=== PATIENT | female | born 1970 | race Caucasian/White ===

== ENCOUNTER 2017-10-13 20:00 | Emergency (ER) | payer OTHER ==
[2017-10-13 20:58] LABS: ABS Basophils 0 10^3/ul (0-0.2); ABS Eosinophils 0 10^3/ul (0-0.6); ABS Lymphocytes 1.5 10^3/ul (1.0-4.8); ABS Monocytes 0.6 10^3/ul (0-0.8); ABS Neutrophils 5.1 10^3/ul (1.5-7.7); ABS Nucleated RBC 0 10^3/ul; Eosinophil % 0.7 % (0-6); Hematocrit 40 % (35-47); Hemoglobin 13.5 g/dl (12.0-16.0); Lymphocyte % 20.2 % (25-47); Mean Corpuscular HGB Conc 34 g/dl (31-36); Mean Corpuscular Hemoglobin 31 pg (27-31); Mean Corpuscular Volume 93 fL (80-97); Mean Platelet Volume 9.8 um3 (7.4-10.4); Nucleated Red Blood Cells % 0.1; Platelet Count 218 10^3/ul (150-450); Red Blood Count 4.32 10^6/ul (4.00-5.40); Red Cell Distribution Width 13 % (10.5-15); White Blood Count 7.3 10^3/ul (3.5-10.8)
[2017-10-13 21:01] LABS: Urine Appearance Cloudy; Urine Blood Negative (Negative); Urine Color Amber; Urine Ketones 1+ (Negative); Urine Protein 1+(30 mg/dL) (Negative); Urine Red Blood Cell 1+(3-5/hpf) (Absent); Urine Urobilinogen Negative (Negative); Urine White Blood Cell Trace(0-5/hpf) (Absent)
[2017-10-13 21:17] LABS: EGFR Non-African American 43.3 (>60)
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
[2017-10-14] MEDS ORDERED: Nicotine Inhaler* 10 MG AMP INH ONE ×2 (01:01→04:37)
[2017-10-14] MEDS ORDERED: Mouth Piece, Nicotine* 1 EACH CARTRIDGE ONE (01:02)
[2017-10-14] MEDS ORDERED: Nicotine Inhaler* 10 MG AMP ONE (01:02)
[2017-10-14] MEDS: Mouth Piece, Nicotine* 1 EACH CARTRIDGE INH PRN ×2 (01:03→10:38)
[2017-10-14] MEDS ORDERED: ALPRAZolam TAB* 0.5 MG PO ONE (04:27)
[2017-10-14] MEDS ORDERED: traMADol TAB* 50 MG PO ONE (04:27)
[2017-10-14] MEDS ORDERED: Mouth Piece, Nicotine* 1 EACH CARTRIDGE INH PRN (04:37)
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
[2017-10-14] MEDS ORDERED: Ibuprofen TAB* 600 MG PO ONE (07:44)
[2017-10-14 11:00] VITALS: BP 127/76
== END 2017-10-14 09:45 | disposition home or self-care (01) ==
LOC: ED 20:00
DX: F19.10 Other psychoactive substance abuse, uncomplicated (principal); F32.9 Major depressive disorder, single episode, unspecified; I10 Essential (primary) hypertension; Z79.899 Other long term (current) drug therapy; Z88.6 Allergy status to analgesic agent; Z88.8 Allergy status to other drugs, medicaments and biological substances; K21.9 Gastro-esophageal reflux disease without esophagitis; F17.210 Nicotine dependence, cigarettes, uncomplicated
CPT/HCPCS: 36415; 80053; 80307; 80320; 80329; 81003; 81015; 84443; 85025; 87077; 87086; 99285; A9270-GY; G0480

== ENCOUNTER → 2018-07-22 14:47 | Emergency (ER) | payer OTHER ==
[~2018-07-22 14:47] MED LIST: Iodixanol* (CONTRAST) 320 MG/ML 100 ML SDV IV ONE; Morphine 4 MG/ML VIAL (1 ml) 4 MG/ML VIAL IV ONE; Ondansetron INJ* 2 MG/ML VIAL IV ONE
[2018-07-22 16:22] LABS: ABS Basophils 0.1 10^3/ul (0-0.2); ABS Eosinophils 0.2 10^3/ul (0-0.6); ABS Lymphocytes 1.6 10^3/ul (1.0-4.8); ABS Monocytes 0.4 10^3/ul (0-0.8); Eosinophil % 2.3 %; Hematocrit 42 % (35-47); Hemoglobin 14.2 g/dL (12.0-16.0); Lymphocyte % 22.1 %; Mean Corpuscular HGB Conc 34 g/dL (31-36); Mean Corpuscular Hemoglobin 31 pg (27-31); Mean Corpuscular Volume 92 fL (80-97); Nucleated Red Blood Cells % 0.1; Platelet Count 264 10^3/uL (150-450); Red Blood Count 4.57 10^6 /uL (3.70-4.87); Red Cell Distribution Width 12 % (10.5-15); White Blood Count 7.2 10^3/uL (3.5-10.8)
[2018-07-22 16:42] LABS: Albumin 4.7 g/dL (3.2-5.2); Albumin/Globulin Ratio 1.7 (1-3); BUN/Creatinine Ratio 14.7 (8-20); C Reactive Protein 2.8 mg/L (<8.01); Calcium 9.7 mg/dL (8.6-10.3); EGFR African American 60.6 (>60); EGFR Non-African American 50.1 (>60); Globulin 2.7 g/dL (2-4); Total Bilirubin 0.5 mg/dL (0.2-1.0); Total Protein 7.4 g/dL (6.4-8.9)
[2018-07-22 16:46] LABS: HCG Pregnancy 0.65 mIU/mL
[2018-07-22 17:57] LABS: Urine Appearance Clear; Urine Bilirubin Negative (Negative); Urine Blood Negative (Negative); Urine Color Straw; Urine Glucose Negative (Negative); Urine Ketones Negative (Negative); Urine Nitrite Negative (Negative); Urine Protein Negative (Negative); Urine Specific Gravity 1.004 (1.010-1.030); Urine Urobilinogen Negative (Negative)
--- NOTE | 2018-07-22 18:06 | ED ---
GI/ HPI - HPI Summary HPI Summary: 37-year-old female presents with right lower quadrant pain for the past couple days. She states the pain is becoming more intense. She was seen by her primary care and sent in for a CAT scan. She denies any nausea vomiting. No change in appetite. pain is worse when she moves. She does have a history of ectopic so they removed her fallopian tubes. She denies any dysuria. No flank pain. No fevers. has had a normal bowel movement yesterday. Denies any diarrhea or constipation. She states the pain is sharp in nature. Nothing makes the pain better or worse. Never had this pain before. - History of Current Complaint Chief Complaint: EDAbdPain Time Seen by Provider: 07/22/18 17:44 Stated Complaint: LOWER RIGHT ABD PAIN PER PT Pain Intensity: 8 - Allergy/Home Medications Allergies/Adverse Reactions: Allergies Allergy/AdvReac Type Severity Reaction Status Date / Time acetaminophen Allergy Unknown Verified 07/22/18 15:00 Reaction Details adhesive tape Allergy causes Verified 07/22/18 15:00 skin mitchell divalproex sodium Allergy Unknown Verified 07/22/18 15:00 [From Depakote] Reaction Details doxycycline Allergy Nausea And Verified 07/22/18 15:00 Vomiting ertapenem Allergy Rash Verified 07/22/18 15:00 gabapentin [From Neurontin] Allergy Swelling Verified 07/22/18 15:00 lamotrigine Allergy seizure Verified 07/22/18 15:00 meropenem Allergy Rash Verified 07/22/18 15:00 metaxalone [From Skelaxin] Allergy Vomiting Verified 07/22/18 15:00 NSAIDS (Non-Steroidal Allergy Unknown Verified 07/22/18 15:00 Anti-Inflamma Reaction Details pregabalin [From Lyrica] Allergy Nausea And Verified 07/22/18 15:00 Vomiting terbinafine Allergy Rash Verified 07/22/18 15:00 tiagabine [From Gabitril] Allergy seizure Verified 07/22/18 15:00 topiramate [From Topamax] Allergy Unknown Verified 07/22/18 15:00 Reaction Details varenicline Allergy Unknown Verified 07/22/18 15:00 Reaction Details oral contraceptives Allergy History of Uncoded 07/22/18 15:00 DVT PMH/Surg Hx/FS Hx/Imm Hx Endocrine/Hematology History: Reports: Hx Anticoagulant Therapy, Hx Blood Transfusions Denies: Hx Diabetes, Hx Systemic Lupus Erythematosus Cardiovascular History: Reports: Hx Coronary Artery Disease, Hx Deep Vein Thrombosis - right leg 10 years ago, Hx Hypertension - CONTROL WITH MEDS, Hx Syncope, Other Cardiovascular Problems/Disorders - 2013 HEART CATHERIZATION, HX OF DVT 2005 Denies: Hx Congestive Heart Failure, Hx Pacemaker/ICD Respiratory History: Reports: Hx Asthma - USE INHALER, Hx Chronic Bronchitis, Hx Pneumonia - current, Other Respiratory Problems/Disorders - ATLEAST ONCE A YEAR GI History: Reports: Hx Gastroesophageal Reflux Disease - CONTROL WITH MEDS, Other GI Disorders - DIVERTICULITIS History: Reports: Hx Acute Renal Failure, Hx Dialysis - ACUTE RENAL FAILURE WHILE IN [facility] 03/2013, Hx Renal Disease - DIALYSIS WHILE IN HOSPITAL, Other Problems/Disorders - 03/16-03/31/2013 HX OF DIALYSIS FOR KIDNEY FAILURE DUE TO SEPSIS Musculoskeletal History: Reports: Hx Arthritis - GENERALIZED, Hx Back Problems, Other Musculoskeletal History - ARTHRITIS Denies: Hx Rheumatoid Arthritis Sensory History: Reports: Hx Contacts or Glasses - GLASSES Denies: Hx Hearing Aid Opthamlomology History: Reports: Hx Contacts or Glasses - GLASSES Neurological History: Reports: Hx Migraine - STRESS INDUCED, Hx Seizures - 2013, Hx Transient Ischemic Attacks (TIA), Other Neuro Impairments/Disorders - HX OF COMA 03/16/13- R/T INTERNAL INFECTION, SEPSIS Psychiatric History: Reports: Hx Anxiety, Hx Depression, Hx Bipolar Disorder Denies: Hx Eating Disorder, Hx Panic Disorder, Hx of Violent Episodes Against Others - Surgical History Surgery Procedure, Year, and Place: 2002 & 2004 NECK FUSION x 2, [facility] [place]. 2002 ORIF LEFT ANKLE SCREWS,. [id number] ECTOPIC PREGNANCIES X 4;. 1999 LEFT BREAST LUMPECTOMY, [facility] [place]. 2009 LEFT WRIST GANGLION CYST REMOVED, [facility] [place]. UTERINE ABLATION , [facility] [place]. 03/2013 HEART CATHERIZATION, [facility] [place]. bilateral salpingectomy Hx Anesthesia Reactions: No Infectious Disease History: No Infectious Disease History: Reports: Hx Hepatitis - HEP C ANTIBIODIES Denies: History Other Infectious Disease, Traveled Outside the [place] in Last 30 Days - Family History Known Family History: Positive: Unknown Negative: Cardiac Disease - Social History Alcohol Use: None Substance Use Type: Reports: None Substance Use Comment - Amount & Last Used: hx of drug and alcohol abuse- reports none in 8 years Smoking Status (MU): Light Every Day Tobacco Smoker Type: Cigarettes Amount Used/How Often: 1 pack per week Have You Smoked in the Last Year: Yes Review of Systems Negative: Fever Negative: Chest Pain Negative: Shortness Of Breath Positive: Abdominal Pain. Negative: Vomiting, Diarrhea, Nausea Negative: dysuria All Other Systems Reviewed And Are Negative: Yes Physical Exam Triage Information Reviewed: Yes Vital Signs On Initial Exam: Initial Vitals Temp Pulse Resp BP Pulse Ox 98.6 F 86 14 115/82 98 07/22/18 14:55 07/22/18 14:55 07/22/18 14:55 07/22/18 14:55 07/22/18 14:55 Vital Signs Reviewed: Yes Appearance: Positive: Well-Appearing Skin: Positive: Warm, Dry Head/Face: Positive: Normal Head/Face Inspection Eyes: Positive: Normal, Conjunctiva Clear ENT: Positive: Pharynx normal Respiratory/Lung Sounds: Positive: Clear to Auscultation, Breath Sounds Present Cardiovascular: Positive: Normal, RRR Abdomen Description: Positive: Soft, Other: - tenderness in RLQ, pos obturator Bowel Sounds: Positive: Present Musculoskeletal: Positive: Normal Neurological: Positive: Normal Psychiatric: Positive: Normal Diagnostics - Vital Signs Vital Signs Temp Pulse Resp BP Pulse Ox 07/22/18 14:55 98.6 F 86 14 115/82 98 - Laboratory Lab Results: Lab Results 07/22/18 07/22/18 07/22/18 Range/Units 16:11 16:11 16:11 WBC 7.2 (3.5-10.8) 10^3/uL RBC 4.57 (3.70-4.87) 10^6 /uL Hgb 14.2 (12.0-16.0) g/dL Hct 42 (35-47) % MCV 92 (80-97) fL MCH 31 (27-31) pg MCHC 34 (31-36) g/dL RDW 12 (10.5-15) % Plt Count 264 (150-450) 10^3/uL MPV 9.0 (7.4-10.4) fL Neut % (Auto) 69.3 % Lymph % (Auto) 22.1 % [place] % (Auto) 5.5 % Eos % (Auto) 2.3 % Baso % (Auto) 0.8 % Absolute Neuts (auto) 5.0 (1.5-7.7) 10^3/ul Absolute Lymphs (auto) 1.6 (1.0-4.8) 10^3/ul Absolute Monos (auto) 0.4 (0-0.8) 10^3/ul Absolute Eos (auto) 0.2 (0-0.6) 10^3/ul Absolute Basos (auto) 0.1 (0-0.2) 10^3/ul Absolute Nucleated RBC 0.0 10^3/ul Nucleated RBC % 0.1 Sodium 137 (135-145) mmol/L Potassium 4.0 (3.5-5.0) mmol/L Chloride 105 (101-111) mmol/L Carbon Dioxide 25 (22-32) mmol/L Anion Gap 7 (2-11) mmol/L BUN 17 (6-24) mg/dL Creatinine 1.16 H (0.51-0.95) mg/dL Est GFR ( Amer) 60.6 (>60) Est GFR (Non-Af Amer) 50.1 (>60) BUN/Creatinine Ratio 14.7 (8-20) Glucose 92 (70-100) mg/dL Lactic Acid 0.4 L (0.5-2.0) mmol/L Calcium 9.7 (8.6-10.3) mg/dL Total Bilirubin 0.50 (0.2-1.0) mg/dL AST 23 (13-39) U/L ALT 33 (7-52) U/L Alkaline Phosphatase 104 (34-104) U/L C-Reactive Protein 2.80 (<8.01) mg/L Total Protein 7.4 (6.4-8.9) g/dL Albumin 4.7 (3.2-5.2) g/dL Globulin 2.7 (2-4) g/dL Albumin/Globulin Ratio 1.7 (1-3) Amylase 38 (29-103) U/L Lipase 23 (11.0-82.0) U/L Beta HCG, Quant 0.65 mIU/mL Urine Color Urine Appearance Urine pH (5-9) Ur Specific Wilcox (1.010-1.030) Urine Protein (Negative) Urine Ketones (Negative) Urine Blood (Negative) Urine Nitrate (Negative) Urine Bilirubin (Negative) Urine Urobilinogen (Negative) Ur Leukocyte Esterase (Negative) Urine Glucose (Negative) 07/22/18 Range/Units 17:49 WBC (3.5-10.8) 10^3/uL RBC (3.70-4.87) 10^6 /uL Hgb (12.0-16.0) g/dL Hct (35-47) % MCV (80-97) fL MCH (27-31) pg MCHC (31-36) g/dL RDW (10.5-15) % Plt Count (150-450) 10^3/uL MPV (7.4-10.4) fL Neut % (Auto) % Lymph % (Auto) % [place] % (Auto) % Eos % (Auto) % Baso % (Auto) % Absolute Neuts (auto) (1.5-7.7) 10^3/ul Absolute Lymphs (auto) (1.0-4.8) 10^3/ul Absolute Monos (auto) (0-0.8) 10^3/ul Absolute Eos (auto) (0-0.6) 10^3/ul Absolute Basos (auto) (0-0.2) 10^3/ul Absolute Nucleated RBC 10^3/ul Nucleated RBC % Sodium (135-145) mmol/L Potassium (3.5-5.0) mmol/L Chloride (101-111) mmol/L Carbon Dioxide (22-32) mmol/L Anion Gap (2-11) mmol/L BUN (6-24) mg/dL Creatinine (0.51-0.95) mg/dL Est GFR ( Amer) (>60) Est GFR (Non-Af Amer) (>60) BUN/Creatinine Ratio (8-20) Glucose (70-100) mg/dL Lactic Acid (0.5-2.0) mmol/L Calcium (8.6-10.3) mg/dL Total Bilirubin (0.2-1.0) mg/dL AST (13-39) U/L ALT (7-52) U/L Alkaline Phosphatase (34-104) U/L C-Reactive Protein (<8.01) mg/L Total Protein (6.4-8.9) g/dL Albumin (3.2-5.2) g/dL Globulin (2-4) g/dL Albumin/Globulin Ratio (1-3) Amylase (29-103) U/L Lipase (11.0-82.0) U/L Beta HCG, Quant mIU/mL Urine Color Straw Urine Appearance Clear Urine pH 5.0 (5-9) Ur Specific Wilcox 1.004 L (1.010-1.030) Urine Protein Negative (Negative) Urine Ketones Negative (Negative) Urine Blood Negative (Negative) Urine Nitrate Negative (Negative) Urine Bilirubin Negative (Negative) Urine Urobilinogen Negative (Negative) Ur Leukocyte Esterase Negative (Negative) Urine Glucose Negative (Negative) Result Diagrams: 07/22/18 16:11 07/22/18 16:11 Lab Statement: Any lab studies that have been ordered have been reviewed, and results considered in the medical decision making process. - CT abd CT Interpretation Completed By: Radiologist Summary of CT Findings: IMPRESSION: 1. The appendix is unremarkable. 2. No other acute CT pathology. - Ultrasound No standard instances Ultrasound Interpretation Completed By: Radiologist Summary of Ultrasound Findings: IMPRESSION: 1. The right ovary was not visualized, possibly obscured by overlying bowel. gas. 2. There is a simple appearing cyst of the left ovary measuring a maximum of. 1.2 cm. Re-Evaluation - Re-Evaluation First Eval Re-Evaluation Time: 19:47 Change: Improved Comment: feeling better Second Eval Re-Evaluation Time: 19:56 Change: Improved Comment: Patient states she wants to go home and is very hungry. GIGU Course/Dx - Course Course Of Treatment: 37-year-old female presents with right lower quadrant pain for the past couple days. She states the pain is becoming more intense. She was seen by her primary care and sent in for a CAT scan. She denies any nausea vomiting. No change in appetite. pain is worse when she moves. She does have a history of ectopic so they removed her fallopian tubes. She denies any dysuria. No flank pain. No fevers. has had a normal bowel movement yesterday. Denies any diarrhea or constipation. She states the pain is sharp in nature. Nothing makes the pain better or worse. Never had this pain before. On exam tenderness the right lower quadrant. wbc normal. CRP normal. urine normal. CT normal. ultrasound shows no acute findings on right as was not able to visualize ovary with bowel. patient on rexam is comfortable and wants to go home. Told to follow-up with primary. Patient understands and agrees with plan. - Diagnoses Differential Diagnoses - Female: Appendicitis, Ovarian Cyst, Urinary Tract Infection Provider Diagnoses: Abdominal pain Discharge - Sign-Out/Discharge Documenting (check all that apply): Patient Departure Patient Received Moderate/Deep Sedation with Procedure: No - Discharge Plan Condition: Good Disposition: HOME Patient Education Materials: Abdominal Pain (ED) Referrals: Mavis Witt MD [Primary Care Provider] - Additional Instructions: Take ibuprofen or Tylenol for pain as needed every 6 hours Follow up with primary within 5 days Return to ED if develop any new or worsening symptoms - Billing Disposition and Condition Condition: GOOD Disposition: Home
[2018-07-22 20:07] VITALS: BP 128/79
== END | disposition home or self-care (01) ==
LOC: ED 14:47
DX: T78.40XA Allergy, unspecified, initial encounter (principal); X58.XXXA Exposure to other specified factors, initial encounter; Y92.9 Unspecified place or not applicable; F17.290 Nicotine dependence, other tobacco product, uncomplicated
CPT/HCPCS: 36415; 74177; 76830; 80053; 81003; 82150; 83605; 83690; 84702; 85025; 86140; 99282; J2270; J2405; Q9967

== ENCOUNTER 2019-03-10 12:25 | Emergency (ER) | payer OTHER ==
--- OUTSIDE RECORDS SUMMARY | 2019-03-10 12:34 | XMS REPORT | Continuity of Care Document ---
:1970 External Reference #:[id number] Author Name Abhinav Murry MD (transmitted by agent of provider Monico Rivas) Address [address] [place] [address] Care Team Providers Name Role Phone Merrick Rincon MD - Care Team Information Tracer Lathe Set Up Operator [phone] Otolaryngology Jaspreet Venegas MD - Neuromuscular Care Team Information Tracer Lathe Set Up Operator [facility] - Pain Care Team Information Tracer Lathe Set Up Operator [phone] Jose Peterson MD - Surgery Care Team Information Tracer Lathe Set Up Operator [phone] Mitesh Sofia MD - Surgery Care Team Information Tracer Lathe Set Up Operator [phone] Bariatric Surgery AT [facility] - Care Team Information Tracer Lathe Set Up Operator Surgery Linda Dee MD - Psychiatry Care Team Information Tracer Lathe Set Up Operator Virginia Zaidi MD - Neurology Care Team Information Tracer Lathe Set Up Operator [phone] Mavis Witt MD - Family Medicine Care Team Information Tracer Lathe Set Up Operator [phone] Problems Active Problems Provider Date Thromboembolic disorder Chavo Landaverde M.D.,FACP Onset: 05/03/2007 Gastroesophageal reflux disease Chavo Landaverde M.D.,FACP Onset: 2007 Chronic pain syndrome Chavo Landaverde M.D.,FACP Onset: 05/24/2008 Displacement of cervical Chavo Landaverde M.D.,FACP Onset: 05/24/2008 intervertebral disc without myelopathy Migraine with typical aura Chavo Landaverde M.D.,FACP Onset: 10/31/2008 Intrinsic asthma without status Chavo Landaverde M.D.,FACP Onset: 2008 asthmaticus Insomnia Chavo Landaverde M.D.,FACP Onset: 08/14/2009 Manic bipolar I disorder Chavo Landaverde M.D.,FACP Onset: 02/09/2011 Intervertebral disc disorder of lumbar Gia Holland, N.P. Onset: region with myelopathy Lumbar spondylosis with myelopathy Gia Holland, N.P. Onset: 2011 Acquired spondylolisthesis Gia Holland, N.P. Onset: 07/29/2011 Obstructive sleep apnea syndrome Chavo Landaverde M.D.,FACP Onset: 2014 Note: per KAUSHAL Neck pain Shane Campa M.D. Onset: 06/11/2014 Essential hypertension Shane Campa M.D. Onset: 06/11/2014 Exposure to Hepatitis C virus Chavo Landaverde M.D.,FACP Onset: 11/20/2014 Note: positive Ab negative RNA Therapeutic opioid induced constipation Spencer Cherry NP Onset: 05/08/2015 Complex regional pain syndrome type I of left Tristan Montaño MD Onset: 2018 lower limb Plantar nerve lesion Tristan Montaño MD Onset: 05/20/2018 Social History Type Date Description Comments Sex Unknown Cigarette Use Quit - Age 42 Tobacco Use Start: Unknown Former Cigarette Smoker End: Unknown Smoking Status Reviewed: 01/10/19 Former Cigarette Smoker ETOH Use 12/27/2014 Has consumed alcohol in previously had the past frequent binge drinking, quit 1995. Doesn't drink. ETOH Use 12/27/2012 Denies alcohol use Recreational Drug Use Denies Drug Use Tobacco Use Start: Unknown Patient is a former End: Unknown smoker Exercise Type/Frequency Exercises sporadically Allergies, Adverse Reactions, Alerts Active Allergies Reaction Severity Comments Date Skelaxin vomiting 05/03/2007 Oral Contraceptives DVT 05/03/2007 Terbinafine HCL rash 09/08/2007 Lyrica vomiting 10/26/2007 Depakote 08/31/2008 Topamax 08/31/2008 Tylenol 08/31/2008 Doxycycline Monohydrate Nausea and Vomiting 11/28/2008 Lamotrigine seizures 03/04/2009 Gabitril seizures 03/04/2009 Varenicline suicidal 07/04/2010 seasonal 06/25/2011 Nicotine (Nicoderm)- Rash 12/22/2011 Adhesives blisters 02/03/2013 Morphine severe headaches 04/10/2013 Ertapenem 04/10/2013 Inactive Allergies NSAIDs 06/26/2010 Medications Active Medications SIG Qnty Indications Ordering Provider Date Magnesium Oxide Take One Tablet 30tabs Chavo Roberts 10/20/2016 250mg By Mouth Daily AT Tiff Landaverde,FACP Tablet Night For Leg Cramps Nabumetone Take One Tablet 60tabs Chavo Roberts 10/22/2015 500mg By Mouth Twice A Tiff Landaverde,FACP Tablets Day as Needed Ventolin HFA Inhale Two Puffs 18units Chavo Roberts 03/25/2015 By Mouth Four Tiff Landaverde,FACP 108(90Base) mcg/Act Times A Day as Aerosol Needed Quetiapine Fumarate Take One Tablet 30tabs Chavo Roberts 06/26/2014 By Mouth AT Tiff Landaverde,FACP 400mg Tablets Bedtime Potassium Chloride Take One Tablet 60tabs Chavo Roberts 08/28/2013 [facility] By Mouth Twice A Tiff Landaverde,FACP 20Meq Tablets Day ER Metoprolol Tartrate take 1/2 tablet 30tabs Chavo Roberts 06/07/2013 by mouth two Tiff Landaverde,FACP 25mg Tablets times a day Tizanidine HCL Take 1/2 To 1 90tabs Chavo Roberts 05/12/2013 4mg Tablet By Mouth Tiff Landaverde,FACP Tablets Three Times A Day as Needed TENS Electrodes to use as 2Boxes 722.73 Chavo Roberts 07/29/2011 directed Tiff Landaverde,FACP Alprazolam 1-2 tab three 35tabs M47.16 Chavo Roberts 08/14/2009 1mg times a day as Tiff Landaverde,FACP Tablets needed anxiety Trazodone HCL take one tablet 90tabs Chavo Roberts 150mg by mouth at Tiff Landaverde,FACP Tablets bedtime (pt is taking two tabs at bedtime) Zolpidem Tartrate Take One Tablet Unknown By Mouth AT 10mg Tablets Bedtime Maximum Daily Dose One Tablet Qvar Redihaler 1 puffs twice Unknown daily 80mcg/Act Aerosol Hydroxyzine HCL Take One To Two Unknown 25mg Tablets By Mouth Tablets Every Evening as Needed Fluconazole Take One Tablet Unknown 150mg By Mouth Today Tablets And Last Day Of Abx Montelukast Sodium Jame Ny L., CONTENT COORDINATOR 10mg Tablets Naproxen Jame Ny 500mg L., CONTENT COORDINATOR Tablets Immunizations CPT Code Status Date Vaccine Lot # [id number] Given 12/19/2015 Influenza Virus Vaccine, Quadrivalent, Split, [id number] Preservative Free 41657 Given 12/24/2014 Pneumonia Vaccine [id number] 20609 Given 12/24/2014 Influenza Virus Vaccine, Quadrivalent, Split, [id number] Preservative Free 73875 Given 02/15/2014 Flu Vaccine Split Virus Preservative Free For [id number] Indiv 3Yr Older 45447 Given 01/05/2013 Hepatitis B Vaccine Adult Dosage [id number] 97301 Given 12/01/2012 Flu Vaccine Split Virus Preservative Free For [id number] Indiv 3Yr Older 73895 Given 11/13/2011 Tdap - Tetanus/Diptheria/Acellular Pertussis [id number] 83979 Given 11/13/2011 Influenza Virus 3Yrs & Over [id number] 57297 Given 02/09/2011 Influenza Virus 3Yrs & Over [id number] 28029 Given 01/08/2010 Pneumonia Vaccine [id number] 73727 Given 01/08/2010 Influenza Virus 3Yrs & Over [id number] 47868 Given 01/15/2009 Influenza Virus 3Yrs & Over [id number] 77720 Given 01/02/2009 Influenza Virus 3Yrs & Over Vital Signs Date Vital Result Comment 01/10/2019 1:23pm Height 67.25 inches 5'7.25" Weight 209.00 lb Heart Rate 90 /min BP Systolic 128 mmHg BP Diastolic 62 mmHg Body Temperature 96.9 F Pain Level 9 BMI (Body Mass Index) 32.5 kg/m2 12/14/2018 11:16am Height 67.25 inches 5'7.25" Weight 208.00 lb Heart Rate 76 /min BP Systolic 116 mmHg BP Diastolic 64 mmHg BMI (Body Mass Index) 32.3 kg/m2 Results Test Date Facility Test Result H/L Range Note Laboratory test [facility] Hepatitis C Undetected Undetected 1 finding [address] Rna Quant IU/[place] [address] [phone] 1 Result in log IU/mL is Undetected. ADDITIONAL INFORMATION The quantification range of this assay is 15 to 100,000,000 IU/mL (1.18 log to 8.00 log IU/mL). Testing was performed using the jose e HCV test ([employer] with the jose e tipple.me0 System. Test Performed by: [facility] [address] [place] [address] Procedures Date Code Description Status 05/01/2015 [id number] Colonoscopy Completed 10/17/2013 [id number] Mammogram Completed 09/30/2011 [id number] Mammogram Completed Medical Devices Description No Information Available Encounters Type Date Location Provider Dx Diagnosis Office Visit 12/14/2018 [facility] Maite Vallejo, G56.03 Carpal tunnel 10:45a at [place] RPA-C syndrome, bilateral upper limbs R20.0 Anesthesia of skin R20.2 Paresthesia of skin Office Visit 08/29/2018 3:40p [facility] Jose Roberts B18.2 Chronic viral Infectious Tiff Lima hepatitis C Diseases Assessments Date Code Description Provider 12/14/2018 G56.03 Carpal tunnel syndrome, bilateral upper Maite Bitting, RPA-C limbs 12/14/2018 R20.0 Anesthesia of skin Maite Bitting, RPA-C 12/14/2018 R20.2 Paresthesia of skin Maite Bitting, RPA-C 08/29/2018 B18.2 Chronic viral hepatitis C Jose Lima M.D. Plan of Treatment No Information Available Functional Status Description No Information Available Mental Status Description No Information Available Referrals Description No Information Available
--- OUTSIDE RECORDS SUMMARY | 2019-03-10 12:34 | XMS REPORT ---
:1970 Author Name Rashmi Fall Address [facility] Unavailable , Care Team Providers Name Role Phone Linda Dee Unavailable Unavailable Rashmi Fall Unavailable Unavailable Allergies, Adverse Reactions, Alerts Allergy Code CodeSystem Reaction Severity Status Substance RxNorm Medications Medication Medication Medication Start Route Dose Status Fill Code CodeSystem Date Instructions RxNorm NoCurrentDosage No NoCurrentFrequency Longer Active quetiapine RxNorm 2019-0 oral 400 mg tablet Active for 30 1-10 day(s) trazodone RxNorm 2019-0 oral 150 mg tablet Active for 30 1-10 day(s) alprazolam RxNorm 2019-0 oral 1 mg tablet No for 30 1-14 Longer day(s) Active zolpidem RxNorm 2019-0 oral 10 mg tablet No for 30 2-08 Longer day(s) Active alprazolam RxNorm 2019-0 oral 1 mg tablet Active for 30 4-24 day(s) zolpidem RxNorm 2019-0 oral 10 mg tablet Active for 30 5-09 day(s) Hospital Discharge Medications Medication Direction Start Date Status Indications Fill Instuctions No Discharge Medication Problems Problem Name Code CodeSystem Start Date End Date Status SNOMED-CT 2018-06-03 Active Laboratory Values/Results Test Test Code Code System Actual Result Date LOINC Procedures Procedure Name Code CodeSystem Target Site Date of Procedure SNOMED-CT () 2018-07-25 SNOMED-CT () 2018-10-11 SNOMED-CT () 2018-10-24 Encounter Diagnosis Code CodeSystem Description Date Finding Finding Code Status 76571 CPT MH- Established 2018-10-13 - SNOMED-CT Active patient 10 2 Minutes Vital Signs Vitals Date Value Immunizations Vaccine Name Vaccine Code CodeSystem Date Status Social History Element Description Start Date End Date Code CodeSystem Description SNOMED-CT Hospital Discharge Instructions Reason For Referral
[2019-03-10 12:46] VITALS: BP 114/77
--- NOTE | 2019-03-10 14:28 | UC ---
Complaint Female HPI - HPI Summary HPI Summary: PATIENT DEVELOPED DYSURIA, FREQUENCY AND URGENCY TODAY. NO FEVER OR NAUSEA. SHE DOES REPORT SOME LEFT FLANK PAIN. DESCRIBES THE SENSATION A BRICK SCRAPING DOWN HER URETHRA. NO PERSONAL H/O KIDNEY STONES BUT THEY DO RUN IN HER FAMILY. - History Of Current Complaint Chief Complaint: UCGU Stated Complaint: URINARY ISSUE Time Seen by Provider: 03/10/19 12:49 Hx Obtained From: Patient Onset/Duration: Sudden Onset, Lasting Hours, Still Present Timing: Constant Severity Initially: Moderate Severity Currently: Moderate Pain Intensity: 5 Pain Scale Used: 0-10 Numeric Character: Sharp Aggravating Factor(s): Urination Alleviating Factor(s): Nothing Associated Signs And Symptoms: Positive: Back Pain - LEFT. Negative: Fever, Nausea - Allergies/Home Medications Allergies/Adverse Reactions: Allergies Allergy/AdvReac Type Severity Reaction Status Date / Time acetaminophen Allergy Unknown Verified 03/10/19 13:05 Reaction Details adhesive tape Allergy causes Verified 03/10/19 13:05 skin mitchell divalproex sodium Allergy Unknown Verified 03/10/19 13:05 [From Depakote] Reaction Details doxycycline Allergy Nausea And Verified 03/10/19 13:05 Vomiting ertapenem Allergy Rash Verified 03/10/19 13:05 gabapentin [From Neurontin] Allergy Swelling Verified 03/10/19 13:05 lamotrigine Allergy seizure Verified 03/10/19 13:05 meropenem Allergy Rash Verified 03/10/19 13:05 metaxalone [From Skelaxin] Allergy Vomiting Verified 03/10/19 13:05 NSAIDS (Non-Steroidal Allergy Unknown Verified 03/10/19 13:05 Anti-Inflamma Reaction Details pregabalin [From Lyrica] Allergy Nausea And Verified 03/10/19 13:05 Vomiting terbinafine Allergy Rash Verified 03/10/19 13:05 tiagabine [From Gabitril] Allergy seizure Verified 03/10/19 13:05 varenicline Allergy Unknown Verified 03/10/19 13:05 Reaction Details oral contraceptives Allergy History of Uncoded 03/10/19 13:05 DVT Home Medications: Home Medications Buprenorp/Nalox 8-2 MG FILM [Suboxone 8 mg-2 mg Sl Film] 1 tab PO TID 03/10/19 [ History Confirmed 03/10/19] Cetirizine HCl [All Day Allergy] 12 tab PO DAILY 12/27/19 [History Confirmed ] Montelukast Sodium 1 tab PO DAILY 03/10/19 [History Confirmed 03/10/19] Naproxen [Naprosyn 500 mg tab] 1 dose PO BID 03/10/19 [History Confirmed ] Polyethylene Glycol 3350 [Miralax] 1 dose PO DAILY PRN 03/10/19 [History Confirmed 03/10/19] PMH/Surg Hx/FS Hx/Imm Hx Respiratory History: Asthma Other History Of: Anticoagulant Therapy - Surgical History Surgical History: Yes Surgery Procedure, Year, and Place: 2002 & 2004 NECK FUSION x 2, [facility] [place] [employer] PREMEIRE PLATE/SCREWS;DEPUR MARY'S IGLOO RICARDO ANTERIOR PLATE - CAN NOT HAVE MRI - IMPLANTS NOT TESTED FOR MRI CONDITIONS. 2002 ORIF LEFT ANKLE SCREWS ( WITH REMOVAL OF METAL),. [id number] ECTOPIC PREGNANCIES X 4;. 1999 LEFT BREAST LUMPECTOMY, [facility] [place]. 2009 LEFT WRIST GANGLION CYST REMOVED, [facility] [place]. UTERINE ABLATION , [facility] [place]. 03/2013 HEART CATHERIZATION, [facility] [place]. bilateral salpingectomy - Family History Known Family History: Positive: Unknown Negative: Cardiac Disease - Social History Alcohol Use: None Substance Use Type: None Substance Use Comment - Amount & Last Used: hx of drug and alcohol abuse- reports none in 8 years Smoking Status (MU): Former Smoker Type: Cigarettes Amount Used/How Often: 1 pack per week Have You Smoked in the Last Year: Yes When Did the Patient Quit Smoking/Using Tobacco: 03/2015 Household Exposure Type: Cigarettes - Immunization History Most Recent Influenza Vaccination: 2013 Most Recent Tetanus Shot: 2002 Most Recent Pneumonia Vaccination: never Review of Systems All Other Systems Reviewed And Are Negative: Yes Constitutional: Positive: Negative ENT: Positive: Negative Respiratory: Positive: Negative Cardiovascular: Positive: Negative Gastrointestinal: Positive: Abdominal Pain Genitourinary: Positive: Dysuria, Frequency, Urgency Physical Exam Triage Information Reviewed: Yes Appearance: Well-Appearing, No Pain Distress, Well-Nourished Vital Signs: Initial Vital Signs Temp 97.4 F 03/10/19 12:42 Pulse 89 03/10/19 12:42 Resp 18 03/10/19 12:42 BP 114/77 03/10/19 12:42 Pulse Ox 98 03/10/19 12:42 Laboratory Tests 12/27/19 13:20 POC Urine Color Yellow POC Urine Clarity Clear POC Urine pH 7.0 POC Ur Specif [place] 1.025 POC Urine Protein Negative POC Ur Glucose (UA) Negative POC Urine Ketones Negative POC Urine Blood Negative POC Urine Nitrite Negative POC Urine Bilirubin Negative POC Urine Urobilinogen 0.2 POC U Leukocyte Esteras Negative Vital Signs Reviewed: Yes Eyes: Positive: Conjunctiva Clear ENT: Positive: Hearing grossly normal Neck: Positive: Supple Respiratory: Positive: No respiratory distress, No accessory muscle use Cardiovascular: Positive: Pulses Normal Abdomen Description: Positive: Soft, CVA Tenderness (L), Other: - MILDLY TENDER LLQ. NO REBOUND OR RIGIDITY. Negative: CVA Tenderness (R), Distended, Guarding Bowel Sounds: Positive: Present Musculoskeletal: Positive: No Edema Neurological: Positive: Alert Psychological: Positive: Age Appropriate Behavior Skin: Negative: Rashes Diagnostics - Radiology CY ABD/PELVIS W/O CONTRAST Radiology Interpretation Completed By: Radiologist Summary of Radiographic Findings: 1. NO RENAL CALCULI OR HYDRONEPHROSIS. NO EVIDENCE FOR ACUTE FINDING IN THE ABDOMEN OR PELVIS. 2. BILATERAL SPONDYLOLYSIS AT THE L5 LEVEL AND GRADE 1 ANTERIOR SPONDYLOLISTHESIS AT THE L5- S1 LEVEL, UNCHANGED. Complaint Female Dx - Course Course Of Treatment: URINE DIP UNREMARKABLE EXCEPT FOR RELATIVELY HIGH SPECIFIC GRAVITY. PATIENT STATES SHE DRINKS GATORADE ALL DAY LONG. CT ABDOMEN/PELVIS DOES NOT SHOW ANY ACUTE PATHOLOGY. NO STONES OR HYDRONEPHROSIS OR STIGMATA OF RECENTLY PASSED STONE. ADVISED PATIENT STAY WELL-HYDRATED WITH FREE WATER. IF HER SYMPTOMS PERSIST I RECOMMEND SHE FOLLOW UP WITH UROLOGY AND/OR GYNECOLOGY. CONSIDER INTERSTITIAL CYSTITIS. PYRIDIUM NEEDED FOR DISCOMFORT. TO THE ER WITHOUT FAIL IF SYMPTOMS WORSEN. - Differential Dx/Diagnosis Provider Diagnosis: Dysuria Discharge ED - Sign-Out/Discharge Documenting (check all that apply): Patient Departure All imaging exams completed and their final reports reviewed: Yes - Discharge Plan Condition: Stable Disposition: HOME Prescriptions: Phenazopyridine TAB* [Pyridium TAB*] 200 mg PO TID #6 tab Patient Education Materials: Interstitial Cystitis (ED) Referrals: [facility] [Provider Group] [facility] [Provider Group] Mavis Witt MD [Primary Care Provider] - If Needed Additional Instructions: URINE DIP TODAY UNREMARKABLE ALTHOUGH IT IS RELATIVELY CONCENTRATED WHICH CAN GIVE YOU SOME URINARY DISCOMFORT. STAY WELL HYDRATED WITH WATER. TRY TO AVOID SUGARY DRINKS. CT TODAY DID NOT SHOW ANY STONES. PYRIDIUM MAY HELP WITH YOUR DISCOMFORT. IF YOUR SYMPTOMS DO NOT IMPROVE YOU MAY BENEFIT FROM UROLOGY AND/OR AUTOMOTIVE FLEET SUPERVISOR EVALUATION. GO TO THE ER WITHOUT FAIL IF YOU DEVELOP WORSENING PAIN, BLOOD IN THE URINE, FEVER, NAUSEA OR ANY OTHER CONCERNING SYMPTOMS. - Billing Disposition and Condition Condition: STABLE Disposition: Home
== END 2019-03-10 14:54 | disposition home or self-care (01) ==
LOC: UCEAST 12:25
DX: R30.0 Dysuria (principal); R35.0 Frequency of micturition; R39.15 Urgency of urination; R10.9 Unspecified abdominal pain; J45.909 Unspecified asthma, uncomplicated; M47.897 Other spondylosis, lumbosacral region; M43.17 Spondylolisthesis, lumbosacral region; Z88.6 Allergy status to analgesic agent; Z91.09 Other allergy status, other than to drugs and biological substances; Z88.8 Allergy status to other drugs, medicaments and biological substances; Z88.1 Allergy status to other antibiotic agents; Z87.891 Personal history of nicotine dependence
CPT/HCPCS: 74176; 81003; 99212; G0463

== ENCOUNTER 2019-05-01 18:49 | Emergency (ER) | payer OTHER ==
--- OUTSIDE RECORDS SUMMARY | 2019-05-01 19:01 | XMS REPORT | Continuity of Care Document ---
:1970 External Reference #:[id number] Author Name Abhinav Murry MD (transmitted by agent of provider Prerna Andrade) Address [address] [place] [address] Care Team Providers Name Role Phone Merrick Rincon MD - Care Team Information Leak Detector [phone] Otolaryngology Jaspreet Venegas MD - Neuromuscular Care Team Information [facility] - Pain Care Team Information Leak Detector [phone] Jose Peterson MD - Surgery Care Team Information Leak Detector [phone] Mitesh Sofia MD - Surgery Care Team Information Leak Detector [phone] Bariatric Surgery AT [facility] - Care Team Information Leak Detector [phone] Surgery Linda Dee MD - Psychiatry Care Team Information Leak Detector Virginia Zaidi MD - Neurology Care Team Information Leak Detector [phone] Mavis Witt MD - Family Medicine Care Team Information Leak Detector Problems Active Problems Provider Date Thromboembolic disorder [...] Cigarette Smoker End: Unknown Smoking Status Reviewed: 04/04/19 Former Cigarette Smoker ETOH Use 12/27/2014 Has [...] Of Abx Montelukast Sodium Jame Ny L., SALES TRAINER 10mg Tablets Naproxen Jame Ny 500mg L., SALES TRAINER Tablets Medications Administered in Office Medication SIG Qnty Indications Ordering Provider Date Celestone 3 mg and 3mg Abhinav Murry MD 01/10/2019 Injection Immunizations CPT Code Status Date Vaccine Lot # [id number] Given 12/19/2015 Influenza Virus Vaccine, Quadrivalent, Split, [id number] Preservative Free [id number] Given 12/24/2014 Pneumonia Vaccine [id number] 37301 Given 12/24/2014 Influenza Virus Vaccine, Quadrivalent, Split, [id number] Preservative Free [id number] Given 02/15/2014 Flu Vaccine Split Virus Preservative Free For [id number] Indiv 3Yr Older 98066 Given 01/05/2013 Hepatitis B Vaccine Adult Dosage [id number] 92858 Given 12/01/2012 Flu Vaccine Split Virus Preservative Free For [id number] Indiv 3Yr Older 86225 Given 11/13/2011 Tdap - Tetanus/Diptheria/Acellular Pertussis [id number] 32732 Given 11/13/2011 Influenza Virus 3Yrs & Over [id number] 42588 Given 02/09/2011 Influenza Virus 3Yrs & Over [id number] 49649 Given 01/08/2010 Pneumonia Vaccine [id number] 29785 Given 01/08/2010 Influenza Virus 3Yrs & Over [id number] 34271 Given 01/15/2009 Influenza Virus 3Yrs & Over [id number] 34218 Given 01/02/2009 Influenza Virus 3Yrs & Over Vital Signs Date Vital Result Comment 04/04/2019 2:18pm Height 67.25 inches 5'7.25" Heart Rate 93 /min BP Systolic 112 mmHg BP Diastolic 70 mmHg Respiratory Rate 18 /min Body Temperature 98.0 F Pain Level 8 01/10/2019 1:23pm Height 67.25 inches 5'7.25" Weight 209.00 lb Heart Rate 90 /min BP Systolic 128 mmHg BP Diastolic 62 mmHg Body Temperature 96.9 F Pain Level 9 BMI (Body Mass Index) 32.5 kg/m2 Results Test Acquired Date Facility Test Result H/L Range Note BUN/Creat/GF 02/02/2019 [facility] Blood Urea 21 mg/dL Normal 8-[address] [place] [address] [phone] Poc Creatinine 1.0 mg/dL Normal 0.6-1.3 1 Poc BUN/Creatinine Ratio 21.0 High 8-20 Egfr Non- 59.2 >60 Egfr 71.6 >60 2 1 Heel Caser: [id number] 2 Because ethnic data is not always readily available, this report includes an eGFR for both -Americans and non- Americans. The National Kidney Disease Education Program (NKDEP) does not endorse the use of the MDRD equation for patients that are not between the ages of 18 and 70, are , have extremes of body size, muscle mass, or nutritional status, or are non- or non-. According to the National Kidney Foundation, irrespective of diagnosis, the stage of the disease is based on the level of kidney function: Stage Description GFR(mL/min/1.73 m(2)) 1 Kidney damage with normal or decreased GFR 90 2 Kidney damage with mild decrease in GFR 60-89 3 Moderate decrease in GFR 30-59 4 Severe decrease in GFR 15-29 5 Kidney failure <15 (or dialysis) Procedures Date Code Description Status 01/10/2019 65717 Inject/Drain Joint/Bursa Small W/O US Completed 05/01/2015 51793748 Colonoscopy Completed 10/17/2013 07699223 Mammogram Completed 09/30/2011 69095515 Mammogram Completed Medical Devices Description No Information Available Encounters Type Date Location Provider Dx Diagnosis Office Visit 01/10/2019 [facility] Abhinav Murry, M18.11 Unil primary 1:00p at [facility] osteoarth of first carpometacarp joint, r hand Office Visit 12/14/2018 [facility] Maiteroel Vallejo, G56.03 Carpal tunnel 10:45a at [place] RPA-C syndrome, bilateral upper limbs R20.0 Anesthesia of skin R20.2 Paresthesia of skin Assessments Date Code Description Provider 01/10/2019 M18.11 Unilateral primary osteoarthritis of first Abhinav Murry MD carpometacarpal joint, right hand 12/14/2018 G56.03 Carpal tunnel syndrome, bilateral upper limbs Maite Vallejo RPA-C 12/14/2018 R20.0 Anesthesia of skin Maite Vallejo RPA-C 12/14/2018 R20.2 Paresthesia of skin Maite Vallejo RPA-C Plan of Treatment Future Appointment(s):05/09/2019 1:45 pm - Abhinav Murry MD at [facility] at [place] Functional Status Description No Information Available Mental Status Description No Information Available Referrals Description No Information Available
--- OUTSIDE RECORDS SUMMARY | 2019-05-01 19:01 | XMS REPORT ---
:1970 Author Organization [facility] Care Team Providers Name Role Phone Gina Katz Primary Care Physician Unavailable Allergies, Adverse Reactions, Alerts Allergy Code CodeSystem Reaction Severity Criticality Status Start Substance Date Moderate Medications Medication Medication Medication Start Stop Route Dose Status Fill Code CodeSystem Date Date Instructions quetiapine 408633 RxNorm 2019-01- oral 300 mg active for 04-26 tablet day(s) alprazolam 19720415 RxNorm 2018-06- oral 1 mg completed for 09-02 tablet day(s) alprazolam 19720415 RxNorm 2018-03- oral 1 mg completed for 07-06 tablet day(s) alprazolam 19720415 RxNorm 2018-11- oral 1 mg 1 completed 1 tablet -01 03-14 tablet three times a three day as needed times a for 30 day(s) day alprazolam 19720415 RxNorm 2018-08- oral 1 mg completed for 11-23 tablet day(s) prazosin 264818 RxNorm 2019-01- oral 1 mg active for 04-26 capsule day(s) quetiapine 980179 RxNorm 2018-12- oral 50 mg completed for 14 tablet day(s) zolpidem 865957 RxNorm 2018- oral 10 mg completed for 01-20 tablet day(s) quetiapine 218975 RxNorm 2018-10- oral 100 mg completed for 01-22 tablet day(s) zolpidem 624665 RxNorm 2018-04- oral 10 mg completed for - tablet day(s) trazodone 592952 RxNorm 2018-03- oral 150 mg completed for 03-16 tablet day(s) alprazolam 448995 RxNorm 2019- oral 1 mg completed for 11-30 tablet day(s) zolpidem 855522 RxNorm 2018-10- oral 10 mg completed for 01-19 tablet day(s) zolpidem 561764 RxNorm 2018-07- oral 10 mg completed for 10-19 tablet day(s) alprazolam 548578 RxNorm 2019-02- oral 1 mg 1 active 1 tablet 03-31 tablet three times a three day as needed times a for 30 day(s) day zolpidem 781993 RxNorm 2019-01 2019- oral 10 mg completed for 02-19 tablet day(s) quetiapine 886982 RxNorm 2018-03- oral 400 mg completed for 12-16 tablet day(s) zolpidem 471719 RxNorm 2019-02- oral 10 mg active for 05-20 tablet day(s) Problems Problem Name Code CodeSystem Alternate Alternate Start End Status Narrative Code CodeSystem Date Date Bipolar 83115762 SNOMED-CT Active affective 3-22 disorder, unspecified Relevant diagnostic tests/laboratory data Narrative No Information Procedures Procedure Code CodeSystem Target Date of Status Service Device Device Device Name Site Procedure Delivery Code Name UID Location Office or [id number] SNOMED-CT () 2019-01-26 complete Mental other 7 d Health- outpatient [place] visit for [address] [id number] patient, [id number] which requires at least 2 of these 3 colin components: An expanded problem focused history; An expanded problem focused examination; [facility] [place] [id number] SNOMED-CT () 2019-03-31 complete Mental other 7 d Health- outpatient [facility] visit for [address] [phone] patient, [phone] which requires at least 2 of these 3 oclin components: An expanded problem focused history; An expanded problem focused examination; [facility] Office [facility] [id number] SNOMED-CT () 2018-07-25 complete Mental other 7 d Health- outpatient [facility] visit for [address], [facility] [phone] patient, [phone] which requires at least 2 of these 3 colin components: An expanded problem focused history; An expanded problem focused examination; Medical [facility] Office [place] [id number] SNOMED-CT () 2018-10-24 complete Mental other 6 d Health- outpatient [facility] visit for [address], [facility], of an [facility] [id number] patient, [phone] which requires at least 2 of these 3 colin components: A problem focused history; A problem focused examination; Straightforw cristian medical decision making. Counselin SNOMED-CT () 2018-10-11 complete Mental d Health- [place], [id number] [phone] Encounters/Encounter Diagnoses Encounter Name Encounter Diagnosis Diagnosis Diagnosis Date of Service Code Code Name CodeSystem Diagnosis Delivery Location Psychotherapy - 97277 [id number] Bipolar SNOMED-CT 2019-04-07 Behavioral Individual 30 affective Health min disorder, Clinic , , unspecified , Vital Signs No Information Social History Element Description Description Start End Code CodeSystem AdditionalInfo Date Date SexAssignedAtBirth Female F AdministrativeGender 11-19 Hospital Discharge Instructions Reason For Referral Medical Equipment FDA Assessments
--- OUTSIDE RECORDS SUMMARY | 2019-05-01 19:01 | XMS REPORT | Continuity of Care Document ---
:1970 External Reference #:[id number] Author Name Mavis Witt M.D. Address [address] [place] [address] Problems Description No Active Problems Social History Type Date Description Comments Sex Unknown ETOH Use Denies alcohol use Recreational Drug Use Denies Drug Use Tobacco Use Start: Unknown End: Patient is a former smoker Smoking Status Reviewed: 04/10/19 Patient is a former smoker Allergies, Adverse Reactions, Alerts Description No Information Available Medications Active Medications SIG Qnty Indications Ordering Date Provider Campbell 1 by mouth every 30caps Mavis Witt, 04/10/2019 290mcg day M.D. Capsules Amoxicillin 2 by mouth twice 40tabs J20.9 Mavis Witt, 04/10/2019 500mg a day M.D. Tablets Cetirizine HCL Take One Tablet 30tabs Mavis Witt, 02/13/2019 10mg By Mouth Every M.D. Tablets Day Amantadine HCL 1 by mouth twice 60caps G21.2 Mavis Witt, 10/21/2018 100mg a day M.D. Capsules Banophen Take One Capsule 30caps Jame Ny, 09/26/2018 25mg By Mouth AT N.P. Capsules Bedtime Hydroxyzine HCL take 1 to 2 180tabs J02.9 Mavis Witt, 08/19/2018 25mg tablets every M.D. Tablets night as needed Sumatriptan 1 tab by mouth 9tabs G43.009 Mavis Witt, 08/12/2018 Succinate up to twice a M.D. 50mg day as needed Tablets for migraine Ondansetron HCL take one tablet 30tabs G43.009 [facility] 4mg by mouth every 4 M.D. Tablets hours as needed (maximum daily dose =6) Antifungal apply thin layer 14gm B35.4 EduarVictoria bloomrosa Dane, 06/22/2018 2% Cream to spot on Leg M.D. Twice a day x 2 weeks Diclofenac Sodium Apply Thin 200gm M25.531 [facility], 05/06/2018 3% Layer To Wrists M.D. Gel bid Montelukast Sodium Take One Tablet 30tabs [facility], 02/21/2018 By Mouth Every M.D. 10mg Tablets Day Naproxen Take One Tablet 60tabs M50.30 [facility], 02/02/2018 500mg By Mouth Twice A M.D. Tablets Day Qvar Redihaler Inhale One puff 10.6units J44.9 [facility], 08/17/2017 By Mouth Twice A M.D. 80mcg/Act Aerosol Day Metoprolol Succinate Take One Tablet 30tabs I10 [facility], 2017 ER By Mouth Every M.D. 25mg Tablets ER Day 24HR Magnesium Oxide -MG 1 tab by mouth 90tabs E83.42 [facility], 2016 Supplement every day M.D. 250mg Tablets Potassium Chloride 1 tab by mouth 180tabs [facility], Maxine ER twice a day M.D. 20Meq Tablets ER Trazodone HCL Take Two Tablets F41.9 Unknown 150mg By Mouth AT Tablets Bedtime-[facility] F33.9 G47.00 Quetiapine Fumarate Take One Tablet By Mouth F41.9 Unknown 400mg Tablets Every Day-[facility] F33.9 Zolpidem Tartrate ER Take One Tablet By G47.00 Unknown 10mg Mouth AT Bedtime as Tablets ER Needed Maximum Daily Dose One-[facility] Ventolin HFA inhale two puffs by 36gm J44.9 [facility]., 108(90Base) mouth four times a M.D. mcg/Act Aerosol day as needed Tizanidine HCL take one tablet by 90tabs M51.37 EduarMavis bloom., 4mg mouth three times a M.D. Tablets day as needed M50.30 M25.519 History Medications Polyethylene Glycol Mix 17 Grams To 1020units Jame Ny, 02/16/2019 - 3350 34 Grams In N.P. 04/10/2019 3350NF Powder Liquid And Drink By Mouth Every Day Azithromycin z robbie uad 6tabs [facility] 12/14/2018 - 250mg M., M.D. 03/15/2019 Tablets Diflucan 1 by mouth day 2tabs B37.3 [facility] 10/21/2018 - 150mg Tablets one, And One M., M.D. 12/06/2018 Again In 7 Days Immunizations CPT Code Status Date Vaccine Lot # U-Flu Given 01/11/2019 Influenza,Unspecified 93859 Given 02/02/2018 Flu Vaccine [id number] Given 12/04/2016 Flu Vaccine [id number] Given 12/24/2014 Pneumovax U-HepB Given 01/05/2013 Hepatitis B,Unspecified 93841 Given 11/13/2011 TDaP Vital Signs Date Vital Result Comment 04/10/2019 2:32pm BP Systolic 122 mmHg BP Diastolic 80 mmHg Height 68 inches 5'8" Weight 219.00 lb BMI (Body Mass Index) 33.3 kg/m2 Heart Rate 82 /min Respiratory Rate 16 /min 12/07/2018 2:57pm BP Systolic 98 mmHg BP Diastolic 60 mmHg Height 68 inches 5'8" Weight 211.00 lb BMI (Body Mass Index) 32.1 kg/m2 Heart Rate 64 /min Body Temperature 98.5 F Respiratory Rate 16 /min Results Test Acquired Date Facility Test Result H/L Range Note Laboratory test 04/10/2019 Lab [facility] TSH, <pending> finding 113 [facility] (607)- - Magnesium <pending> Vitamin D 25 Hydroxy <pending> Poc Urinalysis 03/10/2019 [facility] Glucose, Urine NEGATIVE Negative Poc Bilirubin, Urine NEGATIVE Negative Poc Ketone, Urine NEGATIVE Negative Poc Specific [place], Urine 1.025 Normal 1.010-1.030 Poc Blood, Urine NEGATIVE Negative 1 Poc pH, Urine 7.0 Normal 5-9 Poc Protein, Urine NEGATIVE Negative Poc Urobilinogen, Urine 0.2 Negative Poc Nitrite, Urine NEGATIVE Negative Poc Leukocytes, Urine NEGATIVE Negative Poc Color, Urine YELLOW Poc Clarity, Urine CLEAR BUN/Creat/GFR 02/02/2019 [facility] Poc Blood Urea 21 mg/dL Normal 8- 26 Nitrogen Poc Creatinine 1.0 mg/dL Normal 0.6-1.3 2 Poc BUN/Creatinine Ratio 21.0 High 8-20 Egfr Non- 59.2 >60 Egfr 71.6 >60 3 1 Soap Drier Operator: [id number] 2 Soap Drier Operator: [id number] 3 Because ethnic data is not always readily [...] (or dialysis) Procedures Date Code Description Status 04/10/2019 74032 Visual Screening Test Completed 04/10/2019 57593 Spirometry Completed 04/10/2019 15119 Tympanometry Completed 04/10/2019 11964 Audiometry, Bekesy, Screening Completed 12/07/2018 31104 Tympanometry Completed Medical Devices Description No Information Available Encounters Type Date Location Provider Dx Diagnosis Office Visit 04/10/2019 [facility] Mavis Witt, M51.37 Other intervertebral 2:30p M.D. disc degeneration, lumbosacral region M50.30 Other cervical disc degeneration, unsp cervical region M54.17 Radiculopathy, lumbosacral region M54.12 Radiculopathy, cervical region M25.519 Pain in unspecified shoulder M25.572 Pain in left ankle and joints of left foot J44.9 Chronic obstructive pulmonary disease, unspecified I82.501 Chronic embolism and thombos unsp deep veins of r low extrem F41.9 Anxiety disorder, unspecified F33.9 Major depressive disorder, recurrent, unspecified G47.00 Insomnia, unspecified E66.01 Morbid (severe) obesity due to excess calories E78.2 Mixed hyperlipidemia E55.9 Vitamin D deficiency, unspecified L20.9 Atopic dermatitis, unspecified J30.9 Allergic rhinitis, unspecified G40.909 Epilepsy, unsp, not intractable, without status epilepticus K59.00 Constipation, unspecified G43.009 Migraine w/o aura, not intractable, w/o status migrainosus N39.46 Mixed incontinence M79.606 Pain in leg, unspecified R00.2 Palpitations E83.42 Hypomagnesemia Z79.899 Other intermediate project manager (current) drug therapy I10 Essential (primary) hypertension N64.4 Mastodynia F11.21 Opioid dependence, in remission R53.83 Other fatigue R10.2 Pelvic and perineal pain R87.619 Unsp abnormal cytolog findings in specmn from cervix uteri Z00.01 Encounter for general adult medical exam w abnormal findings M15.9 Polyosteoarthritis, unspecified H66.93 Otitis media, unspecified, bilateral J20.9 Acute bronchitis, unspecified J01.40 Acute pansinusitis, unspecified F17.211 Nicotine dependence, cigarettes, in remission Office Visit 12/07/2018 3:45p [place] Jame Ny, M54.17 Radiculopathy, N.P. lumbosacral region M25.519 Pain in unspecified shoulder F41.9 Anxiety disorder, unspecified J44.9 Chronic obstructive pulmonary disease, unspecified F33.9 Major depressive disorder, recurrent, unspecified E66.01 Morbid (severe) obesity due to excess calories E78.2 Mixed hyperlipidemia E55.9 Vitamin D deficiency, unspecified L20.9 Atopic dermatitis, unspecified J30.9 Allergic rhinitis, unspecified G40.909 Epilepsy, unsp, not intractable, without status epilepticus K59.00 Constipation, unspecified G43.009 Migraine w/o aura, not intractable, w/o status migrainosus N39.46 Mixed incontinence R00.2 Palpitations E83.42 Hypomagnesemia I10 Essential (primary) hypertension N64.4 Mastodynia F11.21 Opioid dependence, in remission R53.83 Other fatigue F17.210 Nicotine dependence, cigarettes, uncomplicated R10.2 Pelvic and perineal pain R87.619 Unsp abnormal cytolog findings in specmn from cervix uteri R06.02 Shortness of breath M50.30 Other cervical disc degeneration, unsp cervical region K57.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 or abscess w/o bleeding B37.3 Candidiasis of vulva and vagina M25.531 Pain in right wrist W10.8xxS Fall (on) (from) other stairs and steps, sequela Z80.3 Family history of malignant neoplasm of breast 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 lumbosacral region M25.519 Pain in unspecified shoulder F41.9 Anxiety disorder, unspecified J44.9 Chronic obstructive pulmonary disease, unspecified F33.9 Major depressive disorder, recurrent, unspecified E66.01 Morbid (severe) obesity due to excess calories E78.2 Mixed hyperlipidemia E55.9 Vitamin D deficiency, unspecified L20.9 Atopic dermatitis, unspecified J30.9 Allergic rhinitis, unspecified G40.909 Epilepsy, unsp, not intractable, without status epilepticus K59.00 Constipation, unspecified G43.009 Migraine w/o aura, not intractable, w/o status migrainosus N39.46 Mixed incontinence R00.2 Palpitations E83.42 Hypomagnesemia I10 Essential (primary) hypertension N64.4 Mastodynia F11.21 Opioid dependence, in remission R53.83 Other fatigue F17.210 Nicotine dependence, cigarettes, uncomplicated R10.2 Pelvic and perineal pain R87.619 Unsp abnormal cytolog findings in specmn from cervix uteri R06.02 Shortness of breath M50.30 Other cervical disc degeneration, unsp cervical region K57.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 or abscess w/o bleeding B37.3 Candidiasis of vulva and vagina M25.531 Pain in right wrist W10.8xxS Fall (on) (from) other stairs and steps, sequela Z80.3 Family history of malignant neoplasm of breast 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 lumbosacral region 04/10/2019 M50.30 Other cervical disc degeneration, Mavis Witt M.D. unspecified cervical region 04/10/2019 M54.17 Radiculopathy, lumbosacral region Mavis Witt M.D. 04/10/2019 M54.12 Radiculopathy, cervical region Mavis Witt M.D. 04/10/2019 M25.519 Pain in unspecified shoulder Mavis Witt M.D. 04/10/2019 M25.572 Pain in left ankle and joints of left foot Mavis Witt M.D. 04/10/2019 J44.9 Chronic obstructive pulmonary disease, Mavis Witt M.D. unspecified 04/10/2019 I82.501 Chronic embolism and thrombosis of Mavis Witt M.D. unspecified deep veins of right lower extremity 04/10/2019 F41.9 Anxiety disorder, unspecified Mavis Witt M.D. 04/10/2019 F33.9 Major depressive disorder, recurrent, Mavis Witt M.D. unspecified 04/10/2019 G47.00 Insomnia, unspecified Mavis Witt M.D. 04/10/2019 E66.01 Morbid (severe) obesity due to excess Mavis Witt M.D. calories 04/10/2019 E78.2 Mixed hyperlipidemia Mavis Witt M.D. 04/10/2019 E55.9 Vitamin D deficiency, unspecified Mavis Witt M.D. 04/10/2019 L20.9 Atopic dermatitis, unspecified Mavis Witt M.D. 04/10/2019 J30.9 Allergic rhinitis, unspecified Mavis Witt M.D. 04/10/2019 G40.909 Epilepsy, unspecified, not intractable, Mavis Witt M.D. without status epilepticus 04/10/2019 K59.00 Constipation, unspecified Mavis Witt M.D. 04/10/2019 G43.009 Migraine without aura, not intractable, Mavis Witt M.D. without status migrainosus 04/10/2019 N39.46 Mixed incontinence Mavis Witt M.D. 04/10/2019 M79.606 Pain in leg, unspecified Mavis Witt M.D. 04/10/2019 R00.2 Palpitations Mavis Witt M.D. 04/10/2019 E83.42 Hypomagnesemia Mavis Witt M.D. 04/10/2019 Z79.899 Other intermediate project manager (current) drug therapy Mavis Witt M.D. 04/10/2019 I10 Essential (primary) hypertension Mavis Witt M.D. 04/10/2019 N64.4 Mastodynia Mavis Witt M.D. 04/10/2019 F11.21 Opioid dependence, in remission Mavis Witt M.D. 04/10/2019 R53.83 Other fatigue Mavis Witt M.D. 04/10/2019 R10.2 Pelvic and perineal pain Mavis Witt M.D. 04/10/2019 R87.619 Unspecified abnormal cytological findings Mavis Witt M.D. in specimens from cervix uteri 04/10/2019 Z00.01 Encounter for general adult medical Mavis Witt M.D. examination with abnormal findings 04/10/2019 M15.9 Polyosteoarthritis, unspecified Mavis Witt M.D. 04/10/2019 H66.93 Otitis media, unspecified, bilateral Mavis Witt M.D. 04/10/2019 J20.9 Acute bronchitis, unspecified Mavis Witt M.D. 04/10/2019 J01.40 Acute pansinusitis, unspecified Mavis Witt M.D. 04/10/2019 F17.211 Nicotine dependence, cigarettes, in Mavis Witt M.D. remission 12/07/2018 M54.17 Radiculopathy, lumbosacral region Jame Ny, N.P. 12/07/2018 M25.519 Pain in unspecified shoulder Jame Ny N.P. 12/07/2018 F41.9 Anxiety disorder, unspecified Jame Ny N.P. 12/07/2018 J44.9 Chronic obstructive pulmonary disease, Jame Ny N.P. unspecified 12/07/2018 F33.9 Major depressive disorder, recurrent, Jame Ny, N.P. unspecified 12/07/2018 E66.01 Morbid (severe) obesity due to excess Jame Ny, N.P. calories 12/07/2018 E78.2 Mixed hyperlipidemia Jame Ny N.P. 12/07/2018 E55.9 Vitamin D deficiency, unspecified Jame Ny N.P. 12/07/2018 L20.9 Atopic dermatitis, unspecified Jame Ny N.P. 12/07/2018 J30.9 Allergic rhinitis, unspecified Jame Ny N.P. 12/07/2018 G40.909 Epilepsy, unspecified, not intractable, Jame Ny N.PDane without status epilepticus 12/07/2018 K59.00 Constipation, unspecified Jame Ny N.P. 12/07/2018 G43.009 Migraine without aura, not intractable, Jame Ny N.PDane without status migrainosus 12/07/2018 N39.46 Mixed incontinence Jame Ny N.P. 12/07/2018 R00.2 Palpitations Jame Ny N.PDane 12/07/2018 E83.42 Hypomagnesemia Jame Ny N.PDane 12/07/2018 I10 Essential (primary) hypertension Jame Ny N.PDane 12/07/2018 N64.4 Mastodynia Jame Ny N.P. 12/07/2018 F11.21 Opioid dependence, in remission Jame Ny N.PDane 12/07/2018 R53.83 Other fatigue Jame Ny N.PDane 12/07/2018 F17.210 Nicotine dependence, cigarettes, Jame Ny N.P. uncomplicated 12/07/2018 R10.2 Pelvic and perineal pain Jame Ny N.PDane 12/07/2018 R87.619 Unspecified abnormal cytological findings Jame Ny N.PDane in specimens from cervix uteri 12/07/2018 R06.02 Shortness of breath Jame Ny N.P. 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 12/07/2018 B35.4 Tinea corporis Jame Ny, N.P. 12/07/2018 M62.830 Muscle spasm of back Jame Ny N.P. 12/07/2018 R07.81 Pleurodynia Jame Ny, N.P. 12/07/2018 R10.84 Generalized abdominal pain Jame Ny N.P. 12/07/2018 B18.2 Chronic viral hepatitis C Jame Ny N.P. 12/07/2018 J02.9 Acute pharyngitis, unspecified Jame Ny, N.P. 12/07/2018 H66.93 Otitis media, unspecified, bilateral Jame Ny, N.P. 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 external agents 12/07/2018 J01.40 Acute pansinusitis, unspecified Jame Ny, N.P. 12/07/2018 G56.02 Carpal tunnel syndrome, left upper limb Jame Ny N.P. 10/21/2018 M54.17 Radiculopathy, lumbosacral region Jame Ny N.P. 10/21/2018 M25.519 Pain in unspecified shoulder Jame Ny, N.P. 10/21/2018 F41.9 Anxiety disorder, unspecified Jame Ny N.P. 10/21/2018 J44.9 Chronic obstructive pulmonary disease, Jame Ny, N.P. unspecified 10/21/2018 F33.9 Major depressive disorder, recurrent, Jame Ny N.P. unspecified 10/21/2018 E66.01 Morbid (severe) obesity due to excess Jame Ny, N.P. calories 10/21/2018 E78.2 Mixed hyperlipidemia Jame Ny, N.P. 10/21/2018 E55.9 Vitamin D deficiency, unspecified Jame Ny, N.P. 10/21/2018 L20.9 Atopic dermatitis, unspecified Jame Ny, N.P. 10/21/2018 J30.9 Allergic rhinitis, unspecified Jame Ny, N.P. 10/21/2018 G40.909 Epilepsy, unspecified, not intractable, Jame Ny N.P. without status epile 10/21/2018 K59.00 Constipation, unspecified Jame Ny N.P. 10/21/2018 G43.009 Migraine without aura, not intractable, Jame Ny N.PDane without status migra 10/21/2018 N39.46 Mixed incontinence Jame Ny N.PDane 10/21/2018 R00.2 Palpitations Jame Ny N.PDane 10/21/2018 E83.42 Hypomagnesemia Jame Ny N.PDane 10/21/2018 I10 Essential (primary) hypertension Jame Ny N.PDane 10/21/2018 N64.4 Mastodynia Jame Ny N.PDane 10/21/2018 F11.21 Opioid dependence, in remission Jame Ny N.PDane 10/21/2018 R53.83 Other fatigue Jame Ny N.PDane 10/21/2018 F17.210 Nicotine dependence, cigarettes, Jame Ny N.PDane uncomplicated 10/21/2018 R10.2 Pelvic and perineal pain Jame Ny N.PDane 10/21/2018 R87.619 Unspecified abnormal cytological findings Jame Ny N.PDane in specimens from 10/21/2018 R06.02 Shortness of breath Jame Ny N.PDane 10/21/2018 M50.30 Other cervical disc degeneration, Jame Ny N.PDane unspecified cervical regio 10/21/2018 K57.30 Diverticulosis of large intestine without Jame Ny N.Mani perforation or abs 10/21/2018 B37.3 Candidiasis of vulva and vagina Jame Ny N.PDane 10/21/2018 M25.531 Pain in right wrist Jame Ny N.PDane 10/21/2018 W10.8xxS Fall (on) (from) other stairs and steps, Jame Ny N.Mani sequela 10/21/2018 Z80.3 Family history of malignant neoplasm of Jame Ny N.Mani breast 10/21/2018 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 10/21/2018 J02.9 Acute pharyngitis, unspecified Jame Ny N.P. 10/21/2018 H66.93 Otitis media, unspecified, bilateral Mahnaz Leon.Melvin. 10/21/2018 G21.2 Secondary parkinsonism due to other Jame Ny N.P. external agents Plan of Treatment 04/10/2019 - Mavis Witt M.D.M51.37 Other intervertebral disc degeneration , lumbosacral regionComments:EXERCISE/HEAT /MESSAGEAVOID HEAVY LIFTING WT LOSSTYLENOL OR MOTRIN PRN DUR CHECKEDReferral:No Doctor YxkbauoyZ28.30 Other cervical disc degeneration, unspecified cervical regionComments:EXERCISE/ HEAT /MESSAGEAVOID HEAVY LIFTING WT LOSSTYLENOL OR MOTRIN PRN DUR CHECKEDReferral:No Doctor FtqzhfqwX75.17 Radiculopathy, lumbosacral regionComments:EXERCISE/HEAT /MESSAGE AVOID HEAVY LIFTING WT LOSS TYLENOL OR MOTRIN PRN DUR EDLXZWVT96.12 Radiculopathy, cervical regionComments:EXERCISE/ HEAT /MESSAGEAVOID HEAVY LIFTING WT LOSSTYLENOL OR MOTRIN PRN DUR ZBZOUIMB69.519 Pain in unspecified shoulderComments:EXERCISE/HEAT /MESSAGE AVOID HEAVY LIFTINGTYLENOL OR MOTRIN PRN DUR DKHXSUWQ68.572 Pain in left ankle and joints of left footComments:EXERCISE/HEAT/MESSAGETYLENOL OR MOTRIN PRNACE WRAP PRN USE SHOES INSERTS/ CUSHIONReferral:No Doctor OvqlubinO01.9 Chronic obstructive pulmonary disease, unspecifiedComments:INCREASE PO FLUIDRESTSMOKING NRNZGBERUL83.501 Chronic embolism and thrombosis of unspecified deep veins of right lower extremityComments:H/O RLE DVT ,[place] WITH COUMADIN FOR 6 MONTHS AND IT RJKVGWFCB38.9 Anxiety disorder, unspecifiedComments :COUNCELLING AND REASSURANCE RELAXATION TECHNIQUES DISCUSSEDCOUNSELED RE: STRESSORS IN LIFE AVOID ALLENERGY/HIGH CAFFEINE DRINKS DUR JILYXRNR76.9 Major depressive disorder, recurrent, unspecifiedComments:COUNCELLING AND REASSURANCE RELAXATION TECHNIQUES DISCUSSED COUNSELED RE: STRESSORS IN LIFEG47.00 Insomnia, unspecifiedComments:COUNCELLING AND REASSURANCE RELAXATION TECHNIQUES DISCUSSED COUNSELED RE: STRESSORS IN LIFE TYLENOLPM OR MOTRIN PM PRN DUR LZBWMBYD30.01 Morbid (severe) obesity due to excess caloriesComments:WT LOSS COUNCELLINGEXERCISEDIET HMPSDOKTNGMI23.2 Mixed hyperlipidemiaComments:DIET REVIEWED CONTINUE DIETWT LOSSF/U LAB FBWE55.9 Vitamin D deficiency, unspecifiedComments:INCREASE EXPOSURE TO SUNREVIEW OF DIETL20.9 Atopic dermatitis, unspecifiedComments:SKIN CARE INSTRUCTIONS LOTION OR BABY OIL 2-3 APPLICATION PER DAYUSE MOISTURIZING SOAPAVOID PROLONGED WATER EXPOSUREAVOID USING HOT WATER IN VIMUJWF87.9 Allergic rhinitis, unspecifiedComments:INCREASE PO FLUID USE ANTIHISTAMINE PRN SECOND HAND SMOKING AVOIDANCE SMOKING PLYAUPZFCU70.909 Epilepsy, unspecified, not intractable, without status epilepticusComments:F/U WITH NEUROLOGY PRNOBSERVE SAFETY HFERCPL44.00 Constipation, unspecifiedComments:MOM OR MIRALAX PRNHIGH FIBER DIETINCREASE PO MZAFVQ61.009 Migraine without aura, not intractable, without status migrainosusComments:TYLENOL OR MOTRIN PRNRELAXATION/AVOID XLYUEANVLX82.46 Mixed incontinenceComments:COUNCELED SKIN CARE INSTRUCTIONSUSE DIAPER PRNM79.606 Pain in leg, unspecifiedComments:TYLENOL OR MOTRIN PRN EXERCISE/HEAT/MESSAGE DUR FCDUXZWS04.2 PalpitationsComments:YRAUDZWIDQJOKGVY42.42 HypomagnesemiaComments:F /U LABZ79.899 Other intermediate project manager (current) drug therapyComments:F/U WITH PAIN ATRTUVB95 Essential (primary) hypertensionComments:CHECK BP TIW ( PRN)DIET AND FLUID COUNSELING LOW SODIUM DIETWT LOSSF/U LAB SMOKING JXIAWZJNAW20.4 MastodyniaComments:WARM COMPRESS TYLENOL OR MOTRIN PRNRTC FOR F/UF11.21 Opioid dependence, in remissionComments:OBSERVE TDWYPUNAL82.83 Other fatigueComments: INCRFEASE PO FLUIDCOUNCELLING AND REASSURANCE RESTR10.2 Pelvic and perineal painR87.619 Unspecified abnormal cytological findings in specimens from cervix uteriComments:F/U WITH [facility] ,LAST PAP JANUARY 2019 AND TO REPEAT Q 6 FKOMVGX16.01 Encounter for general adult medical examination with abnormal findingsComments:GOOD NUTRITION /EXERCISEDENTAL/ FLOSSING/ SELF CAREDROWNING/ SUN SAFETYSEAT BELT/ DRIVING SAFETYSPORT BIKE/ HELMET USESPORTS/ INJURY PREVENTIONVIOLENCE PREVENTION/ GUN SAFETYPARENTING ADVICE"SAFE AT HOME"SEX EDUCATION/ COUNSELINGBREAST/ TESTICULAR SELF EXAMEDUCATION GOALS/ ACTIVITIESLIMIT TV/ INTERNETUSETOBACCO/ ALCOHOL/ DRUGS/ INHALANTSPEER REFUSAL SKILLSSOCIAL INTERACTIONFAMILY FUNCTIONINGSELF CONTROLDEPRESSION/ ANXIETYNEXT APPOINTMENTYEARLY PHYSICAL WELLNESS EVALUATION F/U WITH OB /COBBLER SOLE FOR PAP AND FCAXOZVCQI13.9 Polyosteoarthritis, unspecifiedComments:EXERCISE/HEAT/ MESSAGETYLENOL OR MOTRIN PRNAVOID HEAVY LIFTINGWT LOSSH66.93 Otitis media, unspecified, bilateralComments:INCREASE PO FLUID TYLENOL OR MOTRIN PRN ANTIHISTAMINE PRNJ20.9 Acute bronchitis, unspecifiedNew Medication:Amoxicillin 500 mg - 2 by mouth twice a dayComments:INCREASE PO IXVKXKSORI30.40 Acute pansinusitis, unspecifiedComments:INCREASE PO FLUIDTYLENOL OR MOTRIN PRN ANTIHISTAMINE PRNF17.211 Nicotine dependence, cigarettes, in remissionComments: ENCOURAGED TO CONTINUE WITH SMOKING CESSATION Functional Status Description No Information Available Mental Status Description No Information Available Referrals Refer to Dr Reason for Referral Status Appt Date Created Huyen Allan MD Closed [address] [place] [address] [phone]
--- OUTSIDE RECORDS SUMMARY | 2019-05-01 19:01 | XMS REPORT | Continuity of Care Document ---
:1970 External Reference #:[id number] Author Name Abhinav Murry MD (transmitted by agent of provider Jessica Castro) Address [address] [place] [address] Care Team Providers Name Role Phone Merrick Rincon MD - Care Team Information Child Care Lead Teacher [phone] Otolaryngology Jaspreet Venegas MD - Neuromuscular Care Team Information Child Care Lead Teacher [phone] [facility] - Pain Care Team Information Child Care Lead Teacher [phone] Jose Peterson MD - Surgery Care Team Information Child Care Lead Teacher [phone] Mitesh Sofia MD - Surgery Care Team Information Child Care Lead Teacher [phone] Bariatric Surgery AT [facility] - Care Team Information Child Care Lead Teacher Surgery Linda Dee MD - Psychiatry Care Team Information Child Care Lead Teacher [phone] Virginia Zaidi MD - Neurology Care Team Information Child Care Lead Teacher [phone] Mavis Witt MD - Family Medicine Care Team Information Child Care Lead Teacher Abhinav Murry MD - Hand Surgery Care Team Information Child Care Lead Teacher Problems Active Problems Provider Date Thromboembolic disorder [...] Onset: 02/09/2011 Intervertebral disc disorder of lumbar Giakarri Saenz-Chas, N.P. Onset: region with myelopathy Lumbar spondylosis with myelopathy Gia Saenz-Doherty, N.P. Onset: 2011 Acquired spondylolisthesis Gia Holland, [...] Cigarette Smoker End: Unknown Smoking Status Reviewed: 04/25/19 Former Cigarette Smoker ETOH Use 12/27/2014 Has [...] Bedtime Potassium Chloride Take One Tablet 60tabs hCavo Roberts 08/28/2013 [facility] By Mouth Twice [...] Of Abx Montelukast Sodium Jame Ny L., CONSUMER SAFETY OFFICER 10mg Tablets Naproxen Jame Ny 500mg L., CONSUMER SAFETY OFFICER Tablets Medications Administered in Office Medication SIG Qnty Indications Ordering Provider Date Celestone 3 mg and 3mg Abhinav Murry MD 04/04/2019 Injection Celestone 3 mg and 3mg Abhinav Murry MD 04/04/2019 Injection Celestone 3 mg and 3mg Abhinav Murry MD 04/04/2019 Injection Celestone 3 mg and 3mg Abhinav Murry MD 01/10/2019 Injection Immunizations CPT Code Status Date Vaccine Lot # [id number] Given 12/19/2015 Influenza Virus Vaccine, Quadrivalent, Split, [id number] Preservative Free [id number] Given 12/24/2014 Pneumonia Vaccine [id number] 87028 Given 12/24/2014 Influenza Virus Vaccine, Quadrivalent, Split, [id number] Preservative Free [id number] Given 02/15/2014 Flu Vaccine Split Virus Preservative Free For [id number] Indiv 3Yr Older 99915 Given 01/05/2013 Hepatitis B Vaccine Adult Dosage [id number] 29420 Given 12/01/2012 Flu Vaccine Split Virus Preservative Free For [id number] Indiv 3Yr Older 05257 Given 11/13/2011 Tdap - Tetanus/Diptheria/Acellular Pertussis [id number] 25746 Given 11/13/2011 Influenza Virus 3Yrs & Over [id number] 36270 Given 02/09/2011 Influenza Virus 3Yrs & Over [id number] 23091 Given 01/08/2010 Pneumonia Vaccine [id number] 84883 Given 01/08/2010 Influenza Virus 3Yrs & Over [id number] 41269 Given 01/15/2009 Influenza Virus 3Yrs & Over [id number] 81302 Given 01/02/2009 Influenza Virus 3Yrs & Over Vital Signs Date Vital Result Comment 04/25/2019 3:31pm Height 67.25 inches 5'7.25" Weight 222.00 lb Heart Rate 62 /min Respiratory Rate 15 /min Pain Level 8 BMI (Body Mass Index) 34.5 kg/m2 04/04/2019 2:18pm Height 67.25 inches 5'7.25" Heart Rate 93 /min BP Systolic 112 mmHg BP Diastolic 70 mmHg Respiratory Rate 18 /min Body Temperature 98.0 F Pain Level 8 Results Test Acquired Date Facility Test Result H/L Range Note BUN/Creat/GF 02/02/2019 [facility] Blood Urea 21 mg/dL Normal 8-[address] [place] [address] [phone] Poc Creatinine 1.0 mg/dL Normal 0.6-1.3 1 Poc BUN/Creatinine Ratio 21.0 High 8-20 Egfr Non- 59.2 >60 Egfr 71.6 >60 2 1 Watch [employer]: [id number] 2 Because ethnic data is not always [...] (or dialysis) Procedures Date Code Description Status 04/25/2019 Inject/Drain Joint/Bursa Small W/O US Completed 04/04/2019 Inject/Drain Joint/Bursa Intermediate W/O US Completed 04/04/2019 Inject Tendon Sheath Or Ligament Aponeurosis Eg Plantar Completed Fascia 04/04/201965588 Inject Tendon Sheath Or Ligament Aponeurosis Eg Plantar Completed Fascia 01/10/2019 Inject/Drain Joint/Bursa Small W/O US Completed 05/01/2015 84392851 Colonoscopy Completed 10/17/2013 [id number] Mammogram Completed 09/30/2011 [id number] Mammogram Completed Medical Devices Description No Information Available Encounters Type Date Location Provider Dx Diagnosis Office Visit 04/04/2019 [facility] Abhinav Murry M65.4 Radial styloid 2:00p at [place] tenosynovitis [de Quervain] M65.311 Trigger thumb, right thumb M65.842 Other synovitis and tenosynovitis, left hand Office Visit 01/10/2019 [facility] M18.11 Unil primary 1:00p [facility]oped[facility] at [facility] osteoarth of first [place] carpometacarp joint, r hand Office Visit 12/14/2018 [facility] G56.03 Carpal tunnel 10:45a [facility]oped[facility] at [facility], syndrome, bilateral [place] RPA-C upper limbs R20.0 Anesthesia of skin R20.2 Paresthesia of skin Assessments Date Code Description Provider 04/25/2019 M18.11 Unilateral primary osteoarthritis of first Abhinav Murry MD carpometacarpal joint, right hand 04/25/2019 M65.4 Radial styloid tenosynovitis [de Quervain] Abhinav Murry MD 04/04/2019 M65.4 Radial styloid tenosynovitis [de Quervain] Abhinav Murry MD 04/04/2019 M65.311 Trigger thumb, right thumb Abhinav Murry MD 04/04/2019 M65.842 Other synovitis and tenosynovitis, left hand Abhinav Murry MD 01/10/2019 M18.11 Unilateral primary osteoarthritis of first Abhinav Murry MD carpometacarpal joint, right hand 12/14/2018 G56.03 Carpal tunnel syndrome, bilateral upper Maite Valle[place] RPA-C limbs 12/14/2018 R20.0 Anesthesia of skin Maite Vallejo RPA-C 12/14/2018 R20.2 Paresthesia of skin Maite Valle[place] RPA-C Plan of Treatment 04/25/2019 - Abhinav Murry, MDM18.11 Unilateral primary osteoarthritis of first carpometacarpal joint, right handFollow up:Follow up: 7-10 days before ayoubsvX50.4 Radial styloid tenosynovitis [de Quervain] Functional Status Description No Information Available Mental Status Description No Information Available Referrals Description No Information Available
[2019-05-01] MEDS ORDERED: NS 0.9% 1000 ML** 1,000 ML IV ONE (19:30)
[2019-05-01] MEDS ORDERED: Ketorolac INJ* 30 MG/ML 1 ML VIAL IV ONE (19:30)
[2019-05-01] MEDS ORDERED: Metoclopramide IV* 5 MG/ML 2 ML VIAL IV SLOW PU ONE (19:30)
--- NOTE | 2019-05-01 19:39 | ED ---
Headache - HPI Summary HPI Summary: The patient is a 48 y/o F presenting to [facility] with a cc of severe left-sided headache lasting for ten days. She reports an extensive hx of migraines since she was 10 years-old, but this episode is abnormal for her as the pain is located in the L frontal and periorbital areas radiating into the occipital area lasting over a week, but she has only ever experienced periorbital headaches that last for a day. Initially the pain was sharp but has developed into a dull/aching pain that is more severe than before, rated 13/10 in severity. She has taken Zofran for her nausea relief, and Sumatriptan, Maxalt, and Zomig for the migraine without relief. She has also attempted to isolate herself without distractions to no relief. She consulted her neurologist as well , who recommended medications and other methods that have not helped either. PMHx: TIA, seizures, CAD, DVT, asthma, GERD, acute renal failure with dialysis. Former smoker, no EtOH, no substance use but has hx of abuse. Medications reviewed. Allergies noted. - History Of Current Complaint Chief Complaint: EDHeadache Stated Complaint: MIGRAINE FOR TEN DAYS PER PT Time Seen by Provider: 05/01/19 19:30 Hx Obtained From: Patient Onset/Duration: Started days ago, Still Present Initially Headache Was: Moderate Currently Pain Is: Current Pain Scale(0-10)= - 13 Timing: Constant Character: Dull, Migraine Aggravating Factor: Nothing Allevating Factors: Nothing Associated Signs And Symptoms: Nausea - Allergies/Home Medications Allergies/Adverse Reactions: Allergies Allergy/AdvReac Type Severity Reaction Status Date / Time acetaminophen Allergy Unknown Verified 05/01/19 18:54 Reaction Details adhesive tape Allergy causes Verified 05/01/19 18:54 skin mitchell divalproex sodium Allergy Unknown Verified 05/01/19 18:54 [From Depakote] Reaction Details doxycycline Allergy Nausea And Verified 05/01/19 18:54 Vomiting ertapenem Allergy Rash Verified 05/01/19 18:54 gabapentin [From Neurontin] Allergy Swelling Verified 05/01/19 18:54 lamotrigine Allergy seizure Verified 05/01/19 18:54 meropenem Allergy Rash Verified 05/01/19 18:54 metaxalone [From Skelaxin] Allergy Vomiting Verified 05/01/19 18:54 NSAIDS (Non-Steroidal Allergy Unknown Verified 05/01/19 18:54 Anti-Inflamma Reaction Details pregabalin [From Lyrica] Allergy Nausea And Verified 05/01/19 18:54 Vomiting terbinafine Allergy Rash Verified 05/01/19 18:54 tiagabine [From Gabitril] Allergy seizure Verified 05/01/19 18:54 varenicline Allergy Unknown Verified 05/01/19 18:54 Reaction Details oral contraceptives Allergy History of Uncoded 05/01/19 18:54 DVT Home Medications: Home Medications Cetirizine* [ZyrTEC 10 MG TAB*] 10 mg PO DAILY PRN 05/01/19 [History Confirmed 05/01/19] Montelukast Sodium TAB* [Singulair TAB*] 10 mg PO DAILY 05/01/19 [History Confirmed 05/01/19] Naproxen [Naproxen 500 mg tab] 500 mg PO BID PRN 05/01/19 [History Confirmed ] Ondansetron TAB* [Zofran 4 MG Tab*] 4 mg PO Q6H PRN 05/01/19 [History Confirmed 05/01/19] Prazosin 1 mg CAP [Minipress 1 mg CAP] 1 mg PO BEDTIME 05/01/19 [History Confirmed 05/01/19] SUMAtriptan TAB* [Imitrex TAB*] 50 mg PO DAILY PRN MDD 100mg 05/01/19 [History Confirmed 05/01/19] diphenhydrAMINE HCl [Benadryl] 25 mg PO DAILY PRN 05/01/19 [History Confirmed ] PMH/Surg Hx/FS Hx/Imm Hx Endocrine/Hematology History: Reports: Hx Anticoagulant Therapy, Hx Blood Transfusions Denies: Hx Diabetes, Hx Systemic Lupus Erythematosus Cardiovascular History: Reports: Hx Coronary Artery Disease, Hx Deep Vein Thrombosis - right leg 10 years ago, Hx Syncope, Other Cardiovascular Problems/ Disorders - 2013 HEART CATHERIZATION, HX OF DVT 2005 Denies: Hx Congestive Heart Failure, Hx Hypertension, Hx Pacemaker/ICD Respiratory History: Reports: Hx Asthma - USE INHALER, Hx Chronic Bronchitis, Hx Pneumonia - current, Other Respiratory Problems/Disorders - ATLEAST ONCE A YEAR GI History: Reports: Hx Gastroesophageal Reflux Disease - CONTROL WITH MEDS, Other GI Disorders - DIVERTICULITIS History: Reports: Hx Acute Renal Failure, Hx Dialysis - ACUTE RENAL FAILURE WHILE IN [facility] 03/2013, Hx Renal Disease - DIALYSIS WHILE IN HOSPITAL, Other Problems/Disorders - 03/16-03/31/2013 HX OF DIALYSIS FOR KIDNEY FAILURE DUE TO SEPSIS Musculoskeletal History: Reports: Hx Arthritis - GENERALIZED, Hx Back Problems, Other Musculoskeletal History - ARTHRITIS Denies: Hx Rheumatoid Arthritis Sensory History: Reports: Hx Contacts or Glasses - GLASSES Denies: Hx Hearing Aid Opthamlomology History: Reports: Hx Contacts or Glasses - GLASSES Neurological History: Reports: Hx Migraine - STRESS INDUCED, Hx Seizures - 2013, Hx Transient Ischemic Attacks (TIA), Other Neuro Impairments/Disorders - HX OF COMA 03/16/13- R/T INTERNAL INFECTION, SEPSIS Psychiatric History: Reports: Hx Anxiety, Hx Depression, Hx Bipolar Disorder Denies: Hx Eating Disorder, Hx Panic Disorder, Hx of Violent Episodes Against Others - Surgical History Surgical History: Yes Surgery Procedure, Year, and Place: 2002 & 2004 NECK FUSION x 2, [facility] [place] [employer] [facility] PL[facility] - CAN NOT HAVE MRI - IMPLANTS NOT TESTED FOR MRI CONDITIONS. 2002 ORIF LEFT ANKLE SCREWS ( WITH REMOVAL OF METAL),. [id number] ECTOPIC PREGNANCIES X 4;. 1999 LEFT BREAST LUMPECTOMY, [facility] [place] 2009 LEFT WRIST GANGLION CYST REMOVED, [facility] [place]. UTERINE ABLATION , [facility] [place]. 03/2013 HEART CATHERIZATION, [facility] [place]. bilateral salpingectomy Hx Anesthesia Reactions: No Infectious Disease History: No Infectious Disease History: Reports: Hx Hepatitis - HEP C ANTIBIODIES Denies: History Other Infectious Disease, Traveled Outside the [place] in Last 30 Days - Family History Known Family History: Negative: Cardiac Disease - Social History Alcohol Use: None Hx Substance Use: No Substance Use Type: Reports: None Substance Use Comment - Amount & Last Used: hx of drug and alcohol abuse- reports none in 8 years Hx Tobacco Use: Yes Smoking Status (MU): Former Smoker Type: Cigarettes Amount Used/How Often: 1 pack per week Have You Smoked in the Last Year: Yes Review of Systems Positive: Nausea - resolved Positive: Headache - left frontal, periorbital, and occipital All Other Systems Reviewed And Are Negative: Yes Physical Exam - Summary Physical Exam Summary: Constitutional: Well-developed, Well-nourished, Alert. (-) Distressed Skin: Warm, Dry HENT: Normocephalic; Atraumatic Eyes: Conjunctiva normal Neck: Musculoskeletal ROM normal neck. (-) JVD, (-) Stridor, (-) Nuchal rigidity Cardio: Rhythm regular, rate normal, Heart sounds normal; Intact distal pulses; Radial pulses are 2+ and symmetric. (-) Murmur Pulmonary/Chest wall: Effort normal. (-) Respiratory distress, (-) Wheezes, (-) Rales Abd: Soft, (-) tenderness, (-) Distension, (-) Guarding, (-) Rebound Musculoskeletal: (-) Edema Lymph: (-) Cervical adenopathy Neuro: Alert, Oriented x3 Psych: Mood and affect Normal GCS: 15 Triage Information Reviewed: Yes Vital Signs On Initial Exam: Initial Vitals Temp Pulse Resp BP Pulse Ox 99.8 F 108 19 122/82 94 05/01/19 18:51 05/01/19 18:51 05/01/19 18:51 05/01/19 18:51 05/01/19 18:51 Vital Signs Reviewed: Yes - René Coma Scale Best Eye Response: 4 - Spontaneous Best Motor Response: 6 - Obeys Commands Best Verbal Response: 5 - Oriented Coma Scale Total: 15 Procedures - Sedation Patient Received Moderate/Deep Sedation with Procedure: No Diagnostics - Vital Signs Vital Signs Temp Pulse Resp BP Pulse Ox 05/01/19 18:51 99.8 F 108 19 122/82 94 - Laboratory Lab Statement: Any lab studies that have been ordered have been reviewed, and results considered in the medical decision making process. - CT Brain CT CT Interpretation Completed By: Radiologist Summary of CT Findings: Impression: No acute intracranial abnormality. ED physician has reviewed this report. Re-Evaluation - Re-Evaluation First Eval Re-Evaluation Time: 20:45 Change: Unchanged - still w headache, give Mg. Second Eval Re-Evaluation Time: 21:30 Change: Improved - headache improved, would like to go home. Headache Course/Dx - Course Course Of Treatment: 48 y/o F w hx migraines p/w migraine headache for 10 days. - PE well appearing, normal neuro exam, PERRL. - given that this headache is worse than normal, in a different location and has persisted for several days, will check head CT. - no infectious symptoms. Did not occur suddenly, not worst of life, do not suspect SAH. - given IVF, toradol, Mg, tramadol. Head CT neg and pain improved w medications. - Diagnoses Provider Diagnoses: Migraine Discharge ED - Sign-Out/Discharge Documenting (check all that apply): Patient Departure - Patient will be discharged home. - Discharge Plan Condition: Stable Disposition: HOME Patient Education Materials: Migraine Headache (ED) Referrals: Mavis Witt MD [Primary Care Provider] - 3 Days Additional Instructions: You were seen in the emergency department for a migraine. Your head CT was normal. Please follow up with your primary care doctor in the next 2-3 days and return to the emergency department for worsening headaches, or concerning symptoms. It was a pleasure taking care of you today. - Billing Disposition and Condition Condition: STABLE Disposition: Home - Attestation Statements Document Initiated by Maryuri: Yes Documenting Scribe: Judy Durán Provider For Whom Maryuri is Documenting (Include Credential): Dr. Rosario Floyd MD Scribe Attestation: IJudy scribed for Dr. Rosario Floyd MD on 05/01/19 at 2141. Scribe Documentation Reviewed: Yes Provider Attestation: The documentation as recorded by the Judy rene accurately reflects the service I personally performed and the decisions made by , Dr. Rosario Floyd MD Status of Scribfide Document: Viewed
[2019-05-01] MEDS ORDERED: Magnesium Sulfate 1 GM IV* 1 GM/100 ML BAG IV ONE (20:49)
[2019-05-01] MEDS ORDERED: traMADol TAB* 50 MG PO ONE (20:50)
[2019-05-01 21:41] VITALS: BP 104/64
== END 2019-05-01 21:39 | disposition home or self-care (01) ==
LOC: ED 18:49
DX: G43.909 Migraine, unspecified, not intractable, without status migrainosus (principal); R11.0 Nausea; I25.10 Atherosclerotic heart disease of native coronary artery without angina pectoris; N18.9 Chronic kidney disease, unspecified; K21.9 Gastro-esophageal reflux disease without esophagitis; F41.9 Anxiety disorder, unspecified; Z86.718 Personal history of other venous thrombosis and embolism; Z87.891 Personal history of nicotine dependence; Z86.73 Personal history of transient ischemic attack (TIA), and cerebral infarction without residual deficits; Z79.01 Long term (current) use of anticoagulants; Z99.2 Dependence on renal dialysis
CPT/HCPCS: 70450; 96365; 96375; 99283; A9270-GY; J1885; J2765; J3475

== ENCOUNTER 2019-08-16 17:57 | Inpatient (IN) ==
[2019-08-16 19:09] LABS: Urine Appearance Clear; Urine Bilirubin Negative (Negative); Urine Blood Negative (Negative); Urine Color Amber; Urine Glucose Negative (Negative); Urine Ketones Trace (Negative); Urine Nitrite Negative (Negative); Urine Protein Negative (Negative); Urine Specific Gravity 1.028 (1.010-1.030); Urine Urobilinogen Negative (Negative)
[2019-08-16 19:14] LABS: Hematocrit 45 % (35-47); Hemoglobin 15.4 g/dL (12.0-16.0); Mean Corpuscular HGB Conc 34 g/dL (31-36); Mean Corpuscular Hemoglobin 31 pg (27-31); Mean Corpuscular Volume 90 fL (80-97); Red Blood Count 5.02 10^6 /uL (3.70-4.87); Red Cell Distribution Width 13 % (10-15); White Blood Count 8.1 10^3/uL (3.5-10.8)
[2019-08-16 19:26] LABS: Albumin 3.9 g/dL (3.2-5.2); Albumin/Globulin Ratio 1.5 (1-3); BUN/Creatinine Ratio 20.5 (8-20); Calcium 8.6 mg/dL (8.6-10.3); EGFR Non-African American 68.6 (>60); Globulin 2.6 g/dL (2-4); Total Bilirubin 0.4 mg/dL (0.2-1.0); Total Protein 6.5 g/dL (6.4-8.9)
[2019-08-16 19:31] LABS: ABS Eosinophils 0.1 10^3/ul (0-0.6); ABS Lymphocytes 1.3 10^3/ul (1.0-4.8); ABS Monocytes 0.4 10^3/ul (0-0.8); Eosinophil % 0.6 %; Lymphocyte % 15.6 %; Nucleated Red Blood Cells % 0.1
[2019-08-16 19:47] LABS: Mean Platelet Volume 9.6 fL (7.4-10.4); Platelet Count 282 10^3/uL (150-450)
[2019-08-16 20:14] LABS: Potassium 4.3 mmol/L (3.5-5.0)
[2019-08-17] MEDS ORDERED: HYDROmorphone 1 MG/1 ML SYRINGE ONE ×2 (01:02→02:41)
[2019-08-17] MEDS ORDERED: Naloxone 0.4 mg VIAL 0.4 mg/ml 1 ml VIAL IV PUSH PRN (01:37)
[2019-08-17] MEDS ORDERED: Naloxone 0.4 mg VIAL 0.4 mg/ml 1 ml VIAL IV PRN ×2 (02:04→02:14)
[2019-08-17] MEDS ORDERED: DiMENhydriNATE IV 50 mg/ml 1 ml VIAL IV PUSH PRN (02:14)
[2019-08-17] MEDS ORDERED: HYDROmorphone 1 MG/1 ML SYRINGE IV PRN (02:14)
[2019-08-17] MEDS: HYDROmorphone 1 MG/1 ML SYRINGE IV PRN ×2 (02:42→02:54)
[2019-08-17] MEDS ORDERED: ZOSYN 3.375 GM x ONE DOSE over 30 miuntes IV (03:15)
[2019-08-17] MEDS: HYDROmorphone PCA 20 MG/20 ML PCA.SYRING PCA SCH ×2 (03:45→12:26)
[2019-08-17] MEDS: NS 0.9% 1000 ml BAG 1,000 ML IV SCH ×2 (03:45→18:37)
[2019-08-17 05:35] LABS: Urine Appearance Clear; Urine Bilirubin Negative (Negative); Urine Blood 2+ (Negative); Urine Color Yellow; Urine Glucose Negative (Negative); Urine Ketones Trace (Negative); Urine Nitrite Negative (Negative); Urine Protein Negative (Negative); Urine Urobilinogen Negative (Negative)
[2019-08-17 05:47] LABS: Urine Bacteria Absent (Absent); Urine Red Blood Cell 3+(>10/hpf) (Absent); Urine Squamous Epithelial Cell Present (Absent); Urine White Blood Cell Trace(0-5/hpf) (Absent)
[2019-08-17] MEDS: Heparin 5000 UNITS/ML VIAL(*) 1 ml vial SUBCUT SCH ×3 (06:42→22:03)
[2019-08-17] MEDS: Famotidine IV 10 MG/ML 2 ml VIAL (20 mg) IV SLOW PU SCH ×2 (08:52→20:16)
[2019-08-17] MEDS: Piperacillin/Tazobactam VIAL*) 3.375 GM in NS 0.9% 100 ml BAG 100 ML IVPB SCH ×3 (08:52→23:44)
[2019-08-17 09:18] LABS: ABS Lymphocytes 0.4 10^3/ul (1.0-4.8); ABS Monocytes 0.7 10^3/ul (0-0.8); Eosinophil % 0.3 %; Hematocrit 43 % (35-47); Hemoglobin 14.5 g/dL (12.0-16.0); Lymphocyte % 3.4 %; Mean Corpuscular HGB Conc 34 g/dL (31-36); Mean Corpuscular Hemoglobin 31 pg (27-31); Mean Corpuscular Volume 91 fL (80-97); Mean Platelet Volume 8.5 fL (7.4-10.4); Platelet Count 264 10^3/uL (150-450); Red Blood Count 4.75 10^6 /uL (3.70-4.87); Red Cell Distribution Width 14 % (10-15); White Blood Count 13.1 10^3/uL (3.5-10.8)
[2019-08-17 09:37] LABS: BUN/Creatinine Ratio 20.7 (8-20); Calcium 7.8 mg/dL (8.6-10.3); EGFR African American 84.1 (>60); EGFR Non-African American 69.5 (>60); Potassium 4.8 mmol/L (3.5-5.0)
[2019-08-17] MEDS ORDERED: Albuterol HFA INHALER 8 gm MDI INH PRN (09:59)
[2019-08-17] MEDS: Ondansetron 4 mg VIAL 2 MG/ML 2 ml VIAL IV PRN (13:29)
[2019-08-17] MEDS ORDERED: fentaNYL PATCH 50 MCG/HR 1 PATCH TRANSDERM SCH (14:00)
[2019-08-17] MEDS ORDERED: Prochlorperazine 5 mg/ml 2 ml VIAL (10 mg) IV PRN (16:26)
[2019-08-17] MEDS ORDERED: Buprenorp/Nalox 4-1 MG FILM SL FILM SCH (18:00)
[2019-08-17] MEDS: fentaNYL Patch Check Q Shift NOTE FOLLOW UP SCH (18:21)
[2019-08-17] MEDS: Buprenorp/Nalox 4-1 MG FILM SL FILM SCH ×2 (20:15→23:05)
[2019-08-18] MEDS: NS 0.9% 1000 ml BAG 1,000 ML IV SCH ×4 (01:31→23:21)
[2019-08-18] MEDS: Heparin 5000 UNITS/ML VIAL(*) 1 ml vial SUBCUT SCH ×3 (05:24→22:14)
[2019-08-18] MEDS: fentaNYL Patch Check Q Shift NOTE FOLLOW UP SCH (07:24)
[2019-08-18 08:13] LABS: ABS Lymphocytes 0.8 10^3/ul (1.0-4.8); ABS Monocytes 0.8 10^3/ul (0-0.8); Eosinophil % 0.1 %; Hematocrit 36 % (35-47); Hemoglobin 11.9 g/dL (12.0-16.0); Lymphocyte % 5.9 %; Mean Corpuscular HGB Conc 33 g/dL (31-36); Mean Corpuscular Hemoglobin 30 pg (27-31); Mean Corpuscular Volume 92 fL (80-97); Mean Platelet Volume 8.3 fL (7.4-10.4); Platelet Count 213 10^3/uL (150-450); Red Cell Distribution Width 14 % (10-15); White Blood Count 13.4 10^3/uL (3.5-10.8)
[2019-08-18 08:31] LABS: BUN/Creatinine Ratio 20.2 (8-20); Calcium 7.8 mg/dL (8.6-10.3); EGFR African American 87.6 (>60); EGFR Non-African American 72.4 (>60); Magnesium 2.2 mg/dL (1.9-2.7); Potassium 4.6 mmol/L (3.5-5.0)
[2019-08-18] MEDS: Famotidine IV 10 MG/ML 2 ml VIAL (20 mg) IV SLOW PU SCH ×2 (08:31→20:51)
[2019-08-18] MEDS: Piperacillin/Tazobactam VIAL*) 3.375 GM in NS 0.9% 100 ml BAG 100 ML IVPB SCH ×2 (08:31→15:53)
[2019-08-18] MEDS: Buprenorp/Nalox 4-1 MG FILM SL FILM SCH ×5 (08:32→23:21)
[2019-08-19] MEDS: Piperacillin/Tazobactam VIAL*) 3.375 GM in NS 0.9% 100 ml BAG 100 ML IVPB SCH ×4 (00:07→23:49)
[2019-08-19] MEDS: NS 0.9% 1000 ml BAG 1,000 ML IV SCH (06:33)
[2019-08-19] MEDS: Heparin 5000 UNITS/ML VIAL(*) 1 ml vial SUBCUT SCH ×3 (06:33→21:50)
[2019-08-19 06:47] LABS: ABS Eosinophils 0.1 10^3/ul (0-0.6); ABS Lymphocytes 0.9 10^3/ul (1.0-4.8); ABS Monocytes 0.4 10^3/ul (0-0.8); Eosinophil % 1.1 %; Hematocrit 30 % (35-47); Hemoglobin 10.3 g/dL (12.0-16.0); Lymphocyte % 7.8 %; Mean Corpuscular HGB Conc 34 g/dL (31-36); Mean Corpuscular Hemoglobin 31 pg (27-31); Mean Corpuscular Volume 91 fL (80-97); Mean Platelet Volume 8.1 fL (7.4-10.4); Nucleated Red Blood Cells % 0.1; Platelet Count 202 10^3/uL (150-450); Red Blood Count 3.36 10^6 /uL (3.70-4.87); Red Cell Distribution Width 14 % (10-15); White Blood Count 11.7 10^3/uL (3.5-10.8)
[2019-08-19 07:03] LABS: BUN/Creatinine Ratio 13.5 (8-20); Calcium 7.9 mg/dL (8.6-10.3); EGFR African American 101.4 (>60); EGFR Non-African American 83.8 (>60)
[2019-08-19] MEDS: Buprenorp/Nalox 4-1 MG FILM SL FILM SCH ×5 (08:21→23:05)
[2019-08-19] MEDS: Famotidine IV 10 MG/ML 2 ml VIAL (20 mg) IV SLOW PU SCH ×2 (08:31→21:00)
[2019-08-19] MEDS: HYDROmorphone 1 MG/1 ML SYRINGE IV SLOW PU PRN (10:08)
[2019-08-19] MEDS: D5W 1/2 NS KCl 20 meq 1000 ml 1,000 ML IV SCH ×2 (12:24→21:53)
[2019-08-19 17:24] LABS: Urine Appearance Cloudy; Urine Bilirubin Negative (Negative); Urine Blood Negative (Negative); Urine Color Straw; Urine Glucose Negative (Negative); Urine Ketones Negative (Negative); Urine Nitrite Negative (Negative); Urine Protein Negative (Negative); Urine Specific Gravity 1.009 (1.010-1.030); Urine Urobilinogen Negative (Negative)
[2019-08-20 05:12] LABS: ABS Eosinophils 0.2 10^3/ul (0-0.6); ABS Monocytes 0.6 10^3/ul (0-0.8); Eosinophil % 2.1 %; Hematocrit 28 % (35-47); Hemoglobin 9.3 g/dL (12.0-16.0); Lymphocyte % 11.4 %; Mean Corpuscular HGB Conc 34 g/dL (31-36); Mean Corpuscular Hemoglobin 31 pg (27-31); Mean Corpuscular Volume 91 fL (80-97); Mean Platelet Volume 8.6 fL (7.4-10.4); Platelet Count 199 10^3/uL (150-450); Red Blood Count 3.03 10^6 /uL (3.70-4.87); Red Cell Distribution Width 13 % (10-15); White Blood Count 9.1 10^3/uL (3.5-10.8)
[2019-08-20 05:29] LABS: BUN/Creatinine Ratio 10.6 (8-20); Calcium 7.4 mg/dL (8.6-10.3); EGFR African American 115.7 (>60); EGFR Non-African American 95.6 (>60); Potassium 3.6 mmol/L (3.5-5.0)
[2019-08-20] MEDS: Heparin 5000 UNITS/ML VIAL(*) 1 ml vial SUBCUT SCH ×3 (06:18→21:52)
[2019-08-20] MEDS: D5W 1/2 NS KCl 20 meq 1000 ml 1,000 ML IV SCH ×2 (08:00→20:28)
[2019-08-20] MEDS: Piperacillin/Tazobactam VIAL*) 3.375 GM in NS 0.9% 100 ml BAG 100 ML IVPB SCH ×3 (08:02→23:48)
[2019-08-20] MEDS: Famotidine IV 10 MG/ML 2 ml VIAL (20 mg) IV SLOW PU SCH ×2 (08:02→21:47)
[2019-08-20] MEDS: Buprenorp/Nalox 4-1 MG FILM SL FILM SCH ×5 (08:05→23:47)
[2019-08-20] MEDS: HYDROmorphone 1 MG/1 ML SYRINGE IV SLOW PU PRN ×3 (10:08→22:18)
[2019-08-20] MEDS: Ondansetron 4 mg VIAL 2 MG/ML 2 ml VIAL IV PRN (18:18)
[2019-08-21] MEDS: Heparin 5000 UNITS/ML VIAL(*) 1 ml vial SUBCUT SCH ×3 (05:33→21:37)
[2019-08-21] MEDS: D5W 1/2 NS KCl 20 meq 1000 ml 1,000 ML IV SCH (06:18)
[2019-08-21 06:49] LABS: Hematocrit 29 % (35-47); Hemoglobin 9.8 g/dL (12.0-16.0); Mean Corpuscular HGB Conc 34 g/dL (31-36); Mean Corpuscular Hemoglobin 31 pg (27-31); Mean Corpuscular Volume 90 fL (80-97); Mean Platelet Volume 8.6 fL (7.4-10.4); Platelet Count 208 10^3/uL (150-450); Red Blood Count 3.17 10^6 /uL (3.70-4.87); Red Cell Distribution Width 13 % (10-15); White Blood Count 7.5 10^3/uL (3.5-10.8)
[2019-08-21 07:03] LABS: Anion Gap 5 mmol/L (2-11); BUN/Creatinine Ratio 8.7 (8-20); Blood Urea Nitrogen 6 mg/dL (6-24); CO2 Carbon Dioxide 28 mmol/L (22-32); Calcium 7.9 mg/dL (8.6-10.3); Chloride 105 mmol/L (101-111); EGFR African American 109.9 (>60); EGFR Non-African American 90.8 (>60); Glucose 109 mg/dL (70-100); Magnesium 1.9 mg/dL (1.9-2.7); Potassium 3.5 mmol/L (3.5-5.0); Sodium 138 mmol/L (135-145)
[2019-08-21 08:02] LABS: ABS Eosinophils 0.2 10^3/ul (0-0.6); ABS Lymphocytes 1.2 10^3/ul (1.0-4.8); Eosinophil % 2.4 %; Lymphocyte % 16.4 %
[2019-08-21] MEDS: Piperacillin/Tazobactam VIAL*) 3.375 GM in NS 0.9% 100 ml BAG 100 ML IVPB SCH ×3 (08:07→23:43)
[2019-08-21] MEDS: Famotidine IV 10 MG/ML 2 ml VIAL (20 mg) IV SLOW PU SCH ×2 (08:10→21:31)
[2019-08-21] MEDS: Buprenorp/Nalox 4-1 MG FILM SL FILM SCH ×6 (08:10→23:42)
[2019-08-21] MEDS: HYDROmorphone 1 MG/1 ML SYRINGE IV SLOW PU PRN ×2 (15:29→21:33)
[2019-08-21 15:43] LABS: HCG Pregnancy < 0.60 mIU/mL
[2019-08-21] MEDS ORDERED: Succinylcholine 200 mg VIAL 20 mg/ml 10 ml VIAL (200 mg) ONE (21:52)
[2019-08-21 22:11] LABS: Urine Appearance Clear; Urine Bilirubin Negative (Negative); Urine Blood Negative (Negative); Urine Color Yellow; Urine Glucose Negative (Negative); Urine Ketones Negative (Negative); Urine Nitrite Negative (Negative); Urine Protein Negative (Negative); Urine Specific Gravity 1.013 (1.010-1.030); Urine Urobilinogen Negative (Negative)
[2019-08-22] MEDS: Heparin 5000 UNITS/ML VIAL(*) 1 ml vial SUBCUT SCH ×3 (05:36→23:41)
[2019-08-22] MEDS: Famotidine IV 10 MG/ML 2 ml VIAL (20 mg) IV SLOW PU SCH ×2 (08:30→20:49)
[2019-08-22] MEDS: Buprenorp/Nalox 4-1 MG FILM SL FILM SCH ×5 (08:30→23:41)
[2019-08-22] MEDS: Piperacillin/Tazobactam VIAL*) 3.375 GM in NS 0.9% 100 ml BAG 100 ML IVPB SCH ×3 (08:30→23:41)
[2019-08-22] MEDS: HYDROmorphone 1 MG/1 ML SYRINGE IV SLOW PU PRN ×2 (11:17→20:49)
[2019-08-22] MEDS: Lactulose 30 ml UDC PO SCH (12:48)
[2019-08-22 18:30] LABS: Urine Appearance Cloudy; Urine Bilirubin Negative (Negative); Urine Blood 3+ (Negative); Urine Color Yellow; Urine Glucose Negative (Negative); Urine Ketones Negative (Negative); Urine Nitrite Negative (Negative); Urine Protein Negative (Negative); Urine Specific Gravity 1.009 (1.010-1.030); Urine Urobilinogen Negative (Negative)
[2019-08-22 18:35] LABS: Urine Bacteria Absent (Absent); Urine Red Blood Cell 3+(>10/hpf) (Absent); Urine Squamous Epithelial Cell Present (Absent); Urine White Blood Cell Absent (Absent)
[2019-08-23] MEDS: Heparin 5000 UNITS/ML VIAL(*) 1 ml vial SUBCUT SCH ×3 (05:42→21:34)
[2019-08-23 06:16] LABS: Hematocrit 32 % (35-47); Hemoglobin 10.6 g/dL (12.0-16.0); Mean Corpuscular HGB Conc 34 g/dL (31-36); Mean Corpuscular Hemoglobin 30 pg (27-31); Mean Corpuscular Volume 90 fL (80-97); Mean Platelet Volume 8.3 fL (7.4-10.4); Platelet Count 244 10^3/uL (150-450); Red Cell Distribution Width 13 % (10-15)
[2019-08-23] MEDS: HYDROmorphone 1 MG/1 ML SYRINGE IV SLOW PU PRN ×5 (06:18→23:07)
[2019-08-23] MEDS: Buprenorp/Nalox 4-1 MG FILM SL FILM SCH ×5 (07:47→23:07)
[2019-08-23] MEDS: Piperacillin/Tazobactam VIAL*) 3.375 GM in NS 0.9% 100 ml BAG 100 ML IVPB SCH ×2 (07:54→16:27)
[2019-08-23] MEDS: Lactulose 30 ml UDC PO SCH (07:58)
[2019-08-23] MEDS: Famotidine IV 10 MG/ML 2 ml VIAL (20 mg) IV SLOW PU SCH ×2 (07:59→21:35)
[2019-08-23 08:11] LABS: ABS Basophils 0.1 10^3/ul (0-0.2); ABS Eosinophils 0.2 10^3/ul (0-0.6); ABS Lymphocytes 1.5 10^3/ul (1.0-4.8); ABS Monocytes 1.4 10^3/ul (0-0.8); Lymphocyte % 14.6 %; Nucleated Red Blood Cells % 0.3
[2019-08-24] MEDS: HYDROmorphone 1 MG/1 ML SYRINGE IV SLOW PU PRN (06:02)
[2019-08-24] MEDS: Heparin 5000 UNITS/ML VIAL(*) 1 ml vial SUBCUT SCH ×3 (06:02→21:09)
[2019-08-24] MEDS: Lactulose 30 ml UDC PO SCH (08:34)
[2019-08-24] MEDS: Buprenorp/Nalox 4-1 MG FILM SL FILM SCH ×4 (08:34→21:06)
[2019-08-24] MEDS: Famotidine IV 10 MG/ML 2 ml VIAL (20 mg) IV SLOW PU SCH ×2 (08:36→21:07)
[2019-08-24] MEDS: oxyCODONE/Acetamin 5/325 mg TAB PO PRN ×3 (10:10→19:29)
[2019-08-25] MEDS: Buprenorp/Nalox 4-1 MG FILM SL FILM SCH ×3 (00:25→12:11)
[2019-08-25] MEDS: oxyCODONE/Acetamin 5/325 mg TAB PO PRN ×2 (04:21→10:44)
[2019-08-25] MEDS: Heparin 5000 UNITS/ML VIAL(*) 1 ml vial SUBCUT SCH (06:21)
[2019-08-25] MEDS: Famotidine IV 10 MG/ML 2 ml VIAL (20 mg) IV SLOW PU SCH (08:25)
[2019-08-25] MEDS: Lactulose 30 ml UDC PO SCH (08:25)
[2019-08-25 09:20] VITALS: BP 115/59
== END 2019-08-25 12:30 | disposition home health service (06) | DRG 710 ==
LOC: SSU 08-17 00:26 → OR 08-17 00:26
PROVIDERS: ADMIT Surgery; ATTEND Surgery

== ENCOUNTER 2019-11-05 12:21 | Inpatient (IN) ==
[2019-11-05] MEDS ORDERED: Ondansetron 4 mg VIAL 2 MG/ML 2 ml VIAL IV ONE ×2 (13:01→16:16)
[2019-11-05] MEDS ORDERED: Morphine 4 MG/ML VIAL (1 ml) IV ONE ×3 (13:01→16:16)
[2019-11-05 13:29] LABS: ABS Lymphocytes 0.7 10^3/ul (1.0-4.8); ABS Monocytes 0.8 10^3/ul (0-0.8); ABS Neutrophils 9.5 10^3/ul (1.5-7.7); Eosinophil % 0.2 %; Hematocrit 37 % (35-47); Hemoglobin 12.4 g/dL (12.0-16.0); Lymphocyte % 6.6 %; Mean Corpuscular HGB Conc 34 g/dL (31-36); Mean Corpuscular Hemoglobin 29 pg (27-31); Mean Corpuscular Volume 85 fL (80-97); Mean Platelet Volume 8.8 fL (7.4-10.4); Platelet Count 207 10^3/uL (150-450); Red Blood Count 4.33 10^6 /uL (3.70-4.87); Red Cell Distribution Width 14 % (10-15); White Blood Count 11.1 10^3/uL (3.5-10.8)
[2019-11-05 13:47] LABS: ALT 26 U/L (7-52); AST 18 U/L (13-39); Albumin 3.9 g/dL (3.2-5.2); Albumin/Globulin Ratio 1.3 (1-3); Alkaline Phosphatase 121 U/L (34-104); Anion Gap 8 mmol/L (2-11); BUN/Creatinine Ratio 12.2 (8-20); Blood Urea Nitrogen 10 mg/dL (6-24); C Reactive Protein 22.97 mg/L (<8.01); CO2 Carbon Dioxide 24 mmol/L (22-32); Calcium 8.8 mg/dL (8.6-10.3); Chloride 103 mmol/L (101-111); EGFR Non-African American 74.4 (>60); Globulin 2.9 g/dL (2-4); Glucose 128 mg/dL (70-100); Lipase < 10 U/L (11.0-82.0); Potassium 3.9 mmol/L (3.5-5.0); Sodium 135 mmol/L (135-145); Total Protein 6.8 g/dL (6.4-8.9)
[2019-11-05] MEDS ORDERED: NS 0.9% IV ONE (13:48)
[2019-11-05] MEDS ORDERED: Cefepime 2 GM in Dextrose 2 GM/50 ML BAG IV ONE (13:49)
[2019-11-05] MEDS ORDERED: Iohexol 300 (CONTRAST) 10 ML SDV IV ONE (15:27)
[2019-11-05 16:00] LABS: Urine Appearance Clear; Urine Bilirubin Negative (Negative); Urine Blood Negative (Negative); Urine Color Straw; Urine Glucose Negative (Negative); Urine Ketones Negative (Negative); Urine Nitrite Negative (Negative); Urine Protein Negative (Negative); Urine Specific Gravity 1.006 (1.010-1.030); Urine Urobilinogen Negative (Negative)
[2019-11-05] MEDS ORDERED: Ondansetron 4 mg VIAL 2 MG/ML 2 ml VIAL IV PRN (18:32)
[2019-11-05] MEDS: HYDROmorphone 1 MG/1 ML SYRINGE IV SLOW PU PRN ×2 (19:02→22:32)
[2019-11-05] MEDS ORDERED: Albuterol HFA INHALER 8 gm MDI INH PRN (19:23)
[2019-11-05] MEDS ORDERED: NS 0.9% 100 ml BAG 100 ML ONE (19:41)
[2019-11-05] MEDS: Piperacillin/Tazobactam VIAL 3.375 GM in NS 0.9% 100 ml BAG 100 ML IVPB SCH (19:51)
[2019-11-05] MEDS ORDERED: Lorazepam PYXIS KEY PRN (20:44)
[2019-11-05] MEDS: NS 0.9% 1000 ml BAG 1,000 ML IV SCH (22:37)
[2019-11-05] MEDS: diPHENhydraMINE 25 mg TAB PO SCH (22:42)
[2019-11-05] MEDS: LORazepam 2 mg VIAL 1 ml IV PUSH PRN (23:00)
[2019-11-06] MEDS: HYDROmorphone 1 MG/1 ML SYRINGE IV SLOW PU PRN ×13 (00:37→23:12)
[2019-11-06 00:46] LABS: Hematocrit 34 % (35-47); Hemoglobin 11.5 g/dL (12.0-16.0); Mean Corpuscular HGB Conc 34 g/dL (31-36); Mean Corpuscular Hemoglobin 29 pg (27-31); Mean Corpuscular Volume 86 fL (80-97); Platelet Count 198 10^3/uL (150-450); Red Blood Count 3.94 10^6 /uL (3.70-4.87); Red Cell Distribution Width 14 % (10-15); White Blood Count 12.9 10^3/uL (3.5-10.8)
[2019-11-06] MEDS: Piperacillin/Tazobactam VIAL 3.375 GM in NS 0.9% 100 ml BAG 100 ML IVPB SCH ×3 (03:10→18:15)
[2019-11-06 05:32] LABS: ABS Monocytes 1.3 10^3/ul (0-0.8); ABS Neutrophils 8.9 10^3/ul (1.5-7.7); Eosinophil % 0.3 %; Hematocrit 35 % (35-47); Hemoglobin 11.3 g/dL (12.0-16.0); Lymphocyte % 8.5 %; Mean Corpuscular HGB Conc 33 g/dL (31-36); Mean Corpuscular Hemoglobin 29 pg (27-31); Mean Corpuscular Volume 90 fL (80-97); Mean Platelet Volume 8.9 fL (7.4-10.4); Platelet Count 173 10^3/uL (150-450); Red Blood Count 3.85 10^6 /uL (3.70-4.87); Red Cell Distribution Width 14 % (10-15); White Blood Count 11.1 10^3/uL (3.5-10.8)
[2019-11-06 05:40] LABS: Calcium 7.8 mg/dL (8.6-10.3); Potassium 3.8 mmol/L (3.5-5.0)
[2019-11-06 05:45] LABS: BUN/Creatinine Ratio 7.6 (8-20); EGFR Non-African American 77.7 (>60)
[2019-11-06] MEDS: NS 0.9% 1000 ml BAG 1,000 ML IV SCH ×2 (06:30→18:50)
[2019-11-06] MEDS: LORazepam 2 mg VIAL 1 ml IV PUSH PRN (14:51)
[2019-11-06] MEDS: diPHENhydraMINE 25 mg TAB PO SCH (23:11)
[2019-11-07] MEDS: HYDROmorphone 1 MG/1 ML SYRINGE IV SLOW PU PRN ×12 (00:20→23:59)
[2019-11-07] MEDS: Piperacillin/Tazobactam VIAL 3.375 GM in NS 0.9% 100 ml BAG 100 ML IVPB SCH ×3 (03:07→20:58)
[2019-11-07] MEDS: LORazepam 2 mg VIAL 1 ml IV PUSH PRN ×3 (03:07→19:30)
[2019-11-07] MEDS: NS 0.9% 1000 ml BAG 1,000 ML IV SCH ×3 (03:07→19:58)
[2019-11-07 09:07] LABS: ABS Eosinophils 0.1 10^3/ul (0-0.6); ABS Monocytes 0.8 10^3/ul (0-0.8); ABS Neutrophils 7.9 10^3/ul (1.5-7.7); Eosinophil % 0.7 %; Hematocrit 34 % (35-47); Hemoglobin 11.4 g/dL (12.0-16.0); Lymphocyte % 10.6 %; Mean Corpuscular HGB Conc 34 g/dL (31-36); Mean Corpuscular Hemoglobin 29 pg (27-31); Mean Corpuscular Volume 87 fL (80-97); Mean Platelet Volume 8.8 fL (7.4-10.4); Platelet Count 170 10^3/uL (150-450); Red Blood Count 3.89 10^6 /uL (3.70-4.87); Red Cell Distribution Width 14 % (10-15); White Blood Count 9.8 10^3/uL (3.5-10.8)
[2019-11-07 09:52] LABS: Potassium 3.3 mmol/L (3.5-5.0)
[2019-11-07 09:58] LABS: BUN/Creatinine Ratio 8.5 (8-20); EGFR African American 106.3 (>60); EGFR Non-African American 87.9 (>60)
[2019-11-07] MEDS ORDERED: KCL 20 MEQ/100 ML IVPREMIX 20 MEQ/100 ML BAG IV ONE (13:30)
[2019-11-07] MEDS: diPHENhydraMINE 25 mg TAB PO SCH (21:01)
[2019-11-08] MEDS: HYDROmorphone 1 MG/1 ML SYRINGE IV SLOW PU PRN ×2 (02:47→05:40)
[2019-11-08] MEDS: Piperacillin/Tazobactam VIAL 3.375 GM in NS 0.9% 100 ml BAG 100 ML IVPB SCH ×2 (02:47→13:49)
[2019-11-08] MEDS: LORazepam 2 mg VIAL 1 ml IV PUSH PRN ×2 (05:40→15:10)
[2019-11-08 06:35] LABS: ABS Eosinophils 0.2 10^3/ul (0-0.6); ABS Lymphocytes 1.1 10^3/ul (1.0-4.8); ABS Monocytes 0.7 10^3/ul (0-0.8); ABS Neutrophils 3.2 10^3/ul (1.5-7.7); Eosinophil % 4.3 %; Hematocrit 29 % (35-47); Lymphocyte % 21.6 %; Mean Corpuscular HGB Conc 34 g/dL (31-36); Mean Corpuscular Hemoglobin 29 pg (27-31); Mean Corpuscular Volume 85 fL (80-97); Mean Platelet Volume 8.6 fL (7.4-10.4); Platelet Count 192 10^3/uL (150-450); Red Blood Count 3.45 10^6 /uL (3.70-4.87); Red Cell Distribution Width 14 % (10-15); White Blood Count 5.3 10^3/uL (3.5-10.8)
[2019-11-08 06:50] LABS: BUN/Creatinine Ratio 4.4 (8-20); Calcium 8.2 mg/dL (8.6-10.3); EGFR African American 111.7 (>60); EGFR Non-African American 92.3 (>60); Magnesium 1.8 mg/dL (1.9-2.7); Potassium 3.2 mmol/L (3.5-5.0)
[2019-11-08] MEDS ORDERED: Magnesium Sulfate 2 gm BAG 2 GM/50 ML BAG IVPB ONE (08:30)
[2019-11-08] MEDS ORDERED: NS 0.9% 100 ml BAG 100 ML ONE ×2 (08:32→21:25)
[2019-11-08] MEDS: NS 0.9% 1000 ml BAG 1,000 ML IV SCH ×2 (08:40→22:58)
[2019-11-08] MEDS: HYDROmorphone 0.5 MG/0.5 ML SYRINGE IV SLOW PU PRN ×3 (08:40→16:20)
[2019-11-08] MEDS: Buprenorp/Nalox 8-2 MG FILM SL FILM SCH ×3 (08:41→21:32)
[2019-11-08] MEDS: KCL 20 MEQ/100 ML IVPREMIX 20 MEQ/100 ML BAG IV SCH ×2 (09:12→17:13)
[2019-11-08] MEDS ORDERED: Magnesium Sulfate 2 GM IV (Premix) IVPB ONE (17:07)
[2019-11-08] MEDS ORDERED: KCL 20 MEQ/100 ML IVPREMIX 20 MEQ/100 ML BAG IV ONE (17:08)
[2019-11-08] MEDS: diPHENhydraMINE 25 mg TAB PO SCH (21:31)
[2019-11-08] MEDS ORDERED: Piperacillin/Tazobactam VIAL 3.375 GM in NS 0.9% 100 ml BAG 100 ML IVPB SCH (22:00)
[2019-11-09] MEDS: HYDROmorphone 0.5 MG/0.5 ML SYRINGE IV SLOW PU PRN ×2 (00:31→03:53)
[2019-11-09] MEDS: Piperacillin/Tazobactam VIAL 3.375 GM in NS 0.9% 100 ml BAG 100 ML IVPB SCH ×2 (01:12→08:44)
[2019-11-09] MEDS: NS 0.9% 1000 ml BAG 1,000 ML IV SCH (08:44)
[2019-11-09] MEDS: Buprenorp/Nalox 8-2 MG FILM SL FILM SCH (09:42)
[2019-11-09 11:20] VITALS: BP 148/86
== END 2019-11-09 12:35 | disposition home or self-care (01) | DRG 720 ==
LOC: SSU 12:21 → ED 12:21 → OBSVTOIN 18:32 → ICU 21:30 → SSU 11-06 12:32
PROVIDERS: ADMIT Surgery; ATTEND Surgery

== ENCOUNTER 2020-02-19 10:34 | Inpatient (IN) ==
[~2020-02-19 10:34] MED LIST changes: +Buffered Lidocaine 1% SYRIN 1 ml INTRADERM ONE; +Dexamethasone IV 4 MG/ML VIAL 1 ml VIAL IV SLOW PU ONE; +Dexamethasone IV 4 MG/ML VIAL 1 ml VIAL ONE; +Heparin 5000 UNITS/ML 1 mL VIAL ONE; -Iodixanol* (CONTRAST) 320 MG/ML 100 ML SDV IV ONE; +Lactated Ringers 1000 ml BAG 1,000 ML IV SCH; -Morphine 4 MG/ML VIAL (1 ml) 4 MG/ML VIAL IV ONE; -Ondansetron INJ* 2 MG/ML VIAL IV ONE; +ceFOXitin 2 GM IVPREMIX 2 GM/50 ML BAG ONE
[2020-02-19] MEDS ORDERED: Ondansetron 4 mg VIAL 2 MG/ML 2 ml VIAL ONE ×3 (10:42→19:17)
[2020-02-19] MEDS ORDERED: Rocuronium 50 mg VIAL 10 mg/ml 5 ml VIAL (50 mg) ONE ×2 (10:42→14:07)
[2020-02-19] MEDS ORDERED: Propofol 10 MG/ML 20 ML BTL ONE ×3 (10:42→17:27)
[2020-02-19] MEDS ORDERED: Dexamethasone IV 4 MG/ML VIAL 1 ml VIAL ONE (10:42)
[2020-02-19] MEDS ORDERED: Midazolam 2 mg/2 ml VIAL 1 mg/ml 2 ml VIAL (2 mg) ONE (10:42)
[2020-02-19] MEDS ORDERED: fentaNYL 250 mcg/5 ml 50 MCG/ML 5 ml VIAL (250 MCG) ONE (10:43)
[2020-02-19] MEDS ORDERED: Lidocaine 2% PF 5 ML VIAL ONE (10:43)
[2020-02-19] MEDS ORDERED: Bupivacaine 0.25% SDV 30 ML ONE (11:50)
[2020-02-19] MEDS ORDERED: Buffered Lidocaine 1% SYRIN 1 ml INTRADERM ONE (11:55)
[2020-02-19] MEDS ORDERED: Propofol 10 mg/ml 100 ML BTL 100 ML ONE (11:59)
[2020-02-19] MEDS ORDERED: Ondansetron 4 mg VIAL 2 MG/ML 2 ml VIAL IV PRN (12:03)
[2020-02-19] MEDS ORDERED: Naloxone 0.4 mg VIAL 0.4 mg/ml 1 ml VIAL IV PRN (12:03)
[2020-02-19] MEDS ORDERED: Remifentanil 2 MG VIAL ONE ×3 (12:09→16:16)
[2020-02-19] MEDS ORDERED: Phenylephrine IV 10 MG/ML 1 ml VIAL ONE (12:14)
[2020-02-19] MEDS ORDERED: HYDROmorphone 1 MG/1 ML SYRINGE ONE ×4 (14:06→18:04)
[2020-02-19] MEDS ORDERED: Ketamine HCL 50 mg/ml 10 ml VIAL (500 MG) ONE (16:12)
[2020-02-19] MEDS ORDERED: Propofol 10 mg/ml 100 ML BTL 200 ML ONE (16:22)
[2020-02-19] MEDS ORDERED: ceFOXitin 2 GM IVPREMIX 2 GM/50 ML BAG ONE (16:32)
[2020-02-19] MEDS ORDERED: Naloxone 0.4 mg VIAL 0.4 mg/ml 1 ml VIAL IV PUSH PRN (17:13)
[2020-02-19] MEDS ORDERED: NS 0.9% 1000 ml BAG 1,000 ML IV SCH (17:15)
[2020-02-19] MEDS ORDERED: Albuterol/Ipratropium NEB.SOL (2.5/0.5 MG) 3 ML NEB.SOLN INH PRN (17:22)
[2020-02-19] MEDS ORDERED: HYDROmorphone PCA 20 MG/20 ML PCA.SYRING PCA SCH ×2 (18:00→22:30)
[2020-02-19] MEDS: HYDROmorphone 1 MG/1 ML SYRINGE IV PRN ×2 (18:05→18:48)
[2020-02-19] MEDS ORDERED: DiMENhydriNATE IV 50 mg/ml 1 ml VIAL ONE (18:58)
[2020-02-19] MEDS ORDERED: DiMENhydriNATE IV 50 mg/ml 1 ml VIAL IV PUSH ONE (19:02)
[2020-02-19] MEDS ORDERED: Nitro 2% OINT (Nitroglycerin) 1 INCH/PAK TOPICAL ONE (19:09)
[2020-02-19] MEDS: Ondansetron 4 mg VIAL 2 MG/ML 2 ml VIAL IV ONE ×2 (19:18→21:36)
[2020-02-19] MEDS ORDERED: fentaNYL 100 mcg/2 ml 50 MCG/ML VIAL ONE (19:33)
[2020-02-19] MEDS: fentaNYL 100 mcg/2 ml 50 MCG/ML VIAL IV PRN ×2 (19:35→19:45)
[2020-02-20] MEDS: Ondansetron 4 mg VIAL 2 MG/ML 2 ml VIAL IV PRN ×4 (02:44→19:26)
[2020-02-20] MEDS ORDERED: diPHENhydraMINE IV 50 MG/ML 1 ml VIAL (BENADRYL) IV ONE (03:39)
[2020-02-20 06:01] LABS: ABS Lymphocytes 1.1 10^3/ul (1.0-4.8); ABS Neutrophils 13.1 10^3/ul (1.5-7.7); Hematocrit 38 % (35-47); Hemoglobin 12.4 g/dL (12.0-16.0); Lymphocyte % 6.9 %; Mean Corpuscular HGB Conc 33 g/dL (31-36); Mean Corpuscular Hemoglobin 28 pg (27-31); Mean Corpuscular Volume 86 fL (80-97); Mean Platelet Volume 8.4 fL (7.4-10.4); Platelet Count 275 10^3/uL (150-450); Red Blood Count 4.39 10^6 /uL (3.70-4.87); Red Cell Distribution Width 17 % (10-15); White Blood Count 15.2 10^3/uL (3.5-10.8)
[2020-02-20 06:31] LABS: BUN/Creatinine Ratio 8.1 (8-20); Calcium 8.6 mg/dL (8.6-10.3); EGFR African American 84.9 (>60); EGFR Non-African American 70.1 (>60); Potassium 3.5 mmol/L (3.5-5.0)
[2020-02-20] MEDS ORDERED: Prochlorperazine 5 mg/ml 2 ml VIAL (10 mg) IV ONE (08:42)
[2020-02-20] MEDS: Heparin 5000 UNITS/ML 1 mL VIAL SUBCUT SCH ×2 (12:41→21:58)
[2020-02-20] MEDS ORDERED: Morphine PCA LOW DOSE 1 MG/ML 30 ML SYRINGE PCA SCH (13:00)
[2020-02-20] MEDS ORDERED: Morphine PCA 5 MG/ML Titrate per Protocol PCA SCH (13:00)
[2020-02-20] MEDS: Prochlorperazine 5 mg/ml 2 ml VIAL (10 mg) IV PRN ×2 (14:30→21:49)
[2020-02-20] MEDS: Pantoprazole VIAL 40 MG VIAL IV SCH (17:43)
[2020-02-20] MEDS: Metoclopramide 5 MG/ML VIAL (10 mg) IV PRN (20:22)
[2020-02-21] MEDS: Ondansetron 4 mg VIAL 2 MG/ML 2 ml VIAL IV PRN ×3 (02:50→14:36)
[2020-02-21] MEDS: Metoclopramide 5 MG/ML VIAL (10 mg) IV PRN ×3 (03:33→16:18)
[2020-02-21] MEDS ORDERED: diPHENhydraMINE IV 50 MG/ML 1 ml VIAL (BENADRYL) IV ONE (03:56)
[2020-02-21] MEDS: Prochlorperazine 5 mg/ml 2 ml VIAL (10 mg) IV PRN ×3 (04:23→20:37)
[2020-02-21] MEDS: Heparin 5000 UNITS/ML 1 mL VIAL SUBCUT SCH ×3 (06:08→22:05)
[2020-02-21] MEDS ORDERED: Lorazepam PYXIS KEY PRN (09:01)
[2020-02-21] MEDS ORDERED: LORazepam 2 mg VIAL 1 ml IV PUSH PRN (09:01)
[2020-02-21] MEDS ORDERED: diPHENhydraMINE IV 50 MG/ML 1 ml VIAL (BENADRYL) IV PRN (09:09)
[2020-02-21] MEDS: LORazepam 2 mg VIAL 1 ml IV PUSH PRN ×3 (11:37→23:13)
[2020-02-21] MEDS: Pantoprazole VIAL 40 MG VIAL IV SCH (16:18)
[2020-02-21] MEDS: Lactated Ringers 1000 ml BAG 1,000 ML IV SCH (17:24)
[2020-02-22] MEDS: Heparin 5000 UNITS/ML 1 mL VIAL SUBCUT SCH ×3 (05:50→23:00)
[2020-02-22 05:56] LABS: Hematocrit 30 % (35-47); Hemoglobin 9.8 g/dL (12.0-16.0); Mean Corpuscular HGB Conc 33 g/dL (31-36); Mean Corpuscular Hemoglobin 29 pg (27-31); Mean Corpuscular Volume 87 fL (80-97); Mean Platelet Volume 8.3 fL (7.4-10.4); Platelet Count 207 10^3/uL (150-450); Red Blood Count 3.39 10^6 /uL (3.70-4.87); Red Cell Distribution Width 18 % (10-15); White Blood Count 5.4 10^3/uL (3.5-10.8)
[2020-02-22] MEDS ORDERED: Scopolamine PATCH Remove NOTE PATCH OFF ONE (06:00)
[2020-02-22] MEDS: Lactated Ringers 1000 ml BAG 1,000 ML IV SCH ×2 (06:08→20:23)
[2020-02-22 06:16] LABS: BUN/Creatinine Ratio 18.1 (8-20); Calcium 8.1 mg/dL (8.6-10.3); EGFR African American 104.2 (>60); EGFR Non-African American 86.1 (>60); Potassium 3.2 mmol/L (3.5-5.0)
[2020-02-22] MEDS: LORazepam 2 mg VIAL 1 ml IV PUSH PRN ×3 (06:24→20:55)
[2020-02-22] MEDS: KCL 10 MEQ/50 ML IVPREMIX 10 MEQ/50 ML BAG IV SCH ×4 (10:27→19:05)
[2020-02-22] MEDS ORDERED: CALCIUM GLUCONATE 1GM/50ML NS 1 GM/50 ML BAG IV ONE (10:30)
[2020-02-22] MEDS: Prochlorperazine 5 mg/ml 2 ml VIAL (10 mg) IV PRN ×2 (10:34→16:53)
[2020-02-22] MEDS: Pantoprazole VIAL 40 MG VIAL IV SCH (16:53)
[2020-02-22] MEDS ORDERED: KCL 10 MEQ/50 ML IVPREMIX 10 MEQ/50 ML BAG ONE (19:03)
[2020-02-23] MEDS: LORazepam 2 mg VIAL 1 ml IV PUSH PRN ×3 (04:29→16:14)
[2020-02-23] MEDS: Heparin 5000 UNITS/ML 1 mL VIAL SUBCUT SCH ×3 (06:03→22:24)
[2020-02-23] MEDS: HYDROmorphone 1 MG/1 ML SYRINGE IV SLOW PU PRN ×2 (10:47→18:25)
[2020-02-23] MEDS: Prochlorperazine 5 mg/ml 2 ml VIAL (10 mg) IV PRN ×2 (10:50→18:23)
[2020-02-23] MEDS: Lactated Ringers 1000 ml BAG 1,000 ML IV SCH (14:28)
[2020-02-23] MEDS: Pantoprazole VIAL 40 MG VIAL IV SCH (16:07)
[2020-02-24] MEDS: HYDROmorphone 1 MG/1 ML SYRINGE IV SLOW PU PRN (04:13)
[2020-02-24] MEDS: Heparin 5000 UNITS/ML 1 mL VIAL SUBCUT SCH (06:20)
[2020-02-24] MEDS: LORazepam 2 mg VIAL 1 ml IV PUSH PRN (08:45)
[2020-02-24 10:16] LABS: ABS Eosinophils 0.2 10^3/ul (0-0.6); ABS Lymphocytes 1.2 10^3/ul (1.0-4.8); ABS Monocytes 1.4 10^3/ul (0-0.8); ABS Neutrophils 7.9 10^3/ul (1.5-7.7); Eosinophil % 1.8 %; Hematocrit 34 % (35-47); Hemoglobin 11.2 g/dL (12.0-16.0); Lymphocyte % 11.3 %; Mean Corpuscular HGB Conc 33 g/dL (31-36); Mean Corpuscular Hemoglobin 29 pg (27-31); Mean Corpuscular Volume 86 fL (80-97); Platelet Count 250 10^3/uL (150-450); Red Cell Distribution Width 17 % (10-15); White Blood Count 10.7 10^3/uL (3.5-10.8)
[2020-02-24 11:20] VITALS: BP 128/74
== END 2020-02-24 12:10 | disposition home health service (06) | DRG 221 ==
LOC: AA 10:34 → SSU 21:25
PROVIDERS: ADMIT Surgery; ATTEND Surgery

== ENCOUNTER 2020-05-07 10:20 | Inpatient (IN) ==
[2020-05-07 11:06] LABS: ABS Basophils 0.1 10^3/ul (0-0.2); ABS Eosinophils 0.2 10^3/ul (0-0.6); ABS Lymphocytes 1.6 10^3/ul (1.0-4.8); ABS Monocytes 0.8 10^3/ul (0-0.8); ABS Neutrophils 5.9 10^3/ul (1.5-7.7); Hematocrit 31 % (35-47); Hemoglobin 10.3 g/dL (12.0-16.0); Lymphocyte % 18.8 %; Mean Corpuscular HGB Conc 33 g/dL (31-36); Mean Corpuscular Hemoglobin 29 pg (27-31); Mean Corpuscular Volume 89 fL (80-97); Mean Platelet Volume 8.7 fL (7.4-10.4); Platelet Count 232 10^3/uL (150-450); Red Blood Count 3.53 10^6 /uL (3.70-4.87); Red Cell Distribution Width 17 % (10-15); White Blood Count 8.5 10^3/uL (3.5-10.8)
[2020-05-07] MEDS ORDERED: NS 0.9% 1000 ml BAG 1,000 ML IV ONE (11:14)
[2020-05-07 11:15] LABS: Activated Partial Thrombo Time 26.9 seconds (26.0-38.0); INR 1.1 (0.82-1.09)
[2020-05-07 11:37] LABS: ALT 8 U/L (7-52); AST 9 U/L (13-39); Albumin 3.3 g/dL (3.2-5.2); Albumin/Globulin Ratio 1.3 (1-3); Alkaline Phosphatase 85 U/L (34-104); Anion Gap 9 mmol/L (2-11); BUN/Creatinine Ratio 8.3 (8-20); Blood Urea Nitrogen 7 mg/dL (6-24); CO2 Carbon Dioxide 20 mmol/L (22-32); Calcium 7.8 mg/dL (8.6-10.3); Chloride 106 mmol/L (101-111); EGFR African American 87.2 (>60); EGFR Non-African American 72.1 (>60); Globulin 2.5 g/dL (2-4); Glucose 179 mg/dL (70-100); Potassium 3.1 mmol/L (3.5-5.0); Sodium 135 mmol/L (135-145); Total Protein 5.8 g/dL (6.4-8.9)
[2020-05-07 12:44] LABS: Urine Appearance Cloudy; Urine Bilirubin 2+ (Negative); Urine Blood Negative (Negative); Urine Color Amber; Urine Glucose Negative (Negative); Urine Ketones Negative (Negative); Urine Nitrite Negative (Negative); Urine Protein 1+(30 mg/dL) (Negative); Urine Specific Gravity 1.028 (1.010-1.030); Urine Urobilinogen Positive (Negative)
[2020-05-07 12:59] LABS: Urine Bacteria Absent (Absent); Urine Red Blood Cell 3+(>10/hpf) (Absent); Urine Squamous Epithelial Cell Present (Absent); Urine White Blood Cell Trace(0-5/hpf) (Absent)
[2020-05-07] MEDS ORDERED: Iohexol 300 (CONTRAST) 10 ML SDV IV ONE (14:00)
[2020-05-07] MEDS ORDERED: Albuterol HFA INHALER 8 gm MDI INH PRN (18:16)
[2020-05-07 18:40] LABS: Alcohol, S < 10 mg/dL (<10)
[2020-05-07 18:41] LABS: Magnesium 1.8 mg/dL (1.9-2.7)
[2020-05-07] MEDS ORDERED: Al Hydrox/Mg Hydrox/Simet LIQ 30 ML UDC PO PRN (19:07)
[2020-05-07] MEDS ORDERED: Ondansetron 4 mg VIAL 2 MG/ML 2 ml VIAL IV PRN (19:07)
[2020-05-07] MEDS ORDERED: Prochlorperazine 5 mg/ml 2 ml VIAL (10 mg) IV PRN (19:14)
[2020-05-07] MEDS: Pantoprazole VIAL 40 MG VIAL IV SCH (19:26)
[2020-05-07] MEDS: KCL 20 MEQ/100 ML IVPREMIX 20 MEQ/100 ML BAG IV SCH ×2 (19:27→22:49)
[2020-05-07 20:44] LABS: Hematocrit 33 % (35-47); Hemoglobin 10.7 g/dL (12.0-16.0)
[2020-05-07] MEDS: Morphine 2 MG/ML SYRINGE IV PRN (22:48)
[2020-05-07] MEDS: diPHENhydraMINE 25 mg TAB PO SCH (22:48)
[2020-05-07] MEDS: Lactated Ringers 1000 ml BAG 1,000 ML IV SCH (22:49)
[2020-05-08 04:46] LABS: ABS Eosinophils 0.1 10^3/ul (0-0.6); ABS Lymphocytes 1.4 10^3/ul (1.0-4.8); ABS Monocytes 0.5 10^3/ul (0-0.8); ABS Neutrophils 4.5 10^3/ul (1.5-7.7); Eosinophil % 1.7 %; Hematocrit 33 % (35-47); Hemoglobin 10.9 g/dL (12.0-16.0); Lymphocyte % 21.5 %; Mean Corpuscular HGB Conc 33 g/dL (31-36); Mean Corpuscular Hemoglobin 29 pg (27-31); Mean Corpuscular Volume 87 fL (80-97); Mean Platelet Volume 8.6 fL (7.4-10.4); Platelet Count 243 10^3/uL (150-450); Red Blood Count 3.76 10^6 /uL (3.70-4.87); Red Cell Distribution Width 17 % (10-15); White Blood Count 6.5 10^3/uL (3.5-10.8)
[2020-05-08 05:02] LABS: BUN/Creatinine Ratio 7.1 (8-20); Calcium 8.1 mg/dL (8.6-10.3); EGFR African American 107.6 (>60); EGFR Non-African American 88.9 (>60); Magnesium 1.9 mg/dL (1.9-2.7); Potassium 3.6 mmol/L (3.5-5.0)
[2020-05-08] MEDS: Morphine 2 MG/ML SYRINGE IV PRN ×4 (06:22→20:34)
[2020-05-08] MEDS: Pantoprazole VIAL 40 MG VIAL IV SCH (07:20)
[2020-05-08] MEDS: Lactated Ringers 1000 ml BAG 1,000 ML IV SCH ×2 (09:11→18:48)
[2020-05-08] MEDS ORDERED: Bacitracin OINTMENT TUBE TOPICAL SCH (13:00)
[2020-05-08] MEDS ORDERED: Midazolam 10 mg/10 ml VIAL 1 mg/ml 10 ml VIAL (10 mg) ONE (16:07)
[2020-05-08] MEDS ORDERED: fentaNYL 100 mcg/2 ml 50 MCG/ML VIAL ONE (16:07)
[2020-05-08] MEDS ORDERED: diPHENhydraMINE IV 50 MG/ML 1 ml VIAL (BENADRYL) ONE (16:37)
[2020-05-08 17:06] LABS: Urine Benzodiazepine Screen Presumptive Positive (None Detect); Urine Cannabinoids Screen None Detected (None Detect); Urine Opiates Screen Presumptive Positive (None Detect)
[2020-05-08] MEDS: diPHENhydraMINE 25 mg TAB PO SCH (20:33)
[2020-05-08] MEDS: Mupirocin 2% OINT TUBE TOPICAL SCH (20:34)
[2020-05-09] MEDS: Morphine 2 MG/ML SYRINGE IV PRN ×3 (00:36→12:02)
[2020-05-09] MEDS: Lactated Ringers 1000 ml BAG 1,000 ML IV SCH ×2 (02:30→11:09)
[2020-05-09] MEDS: Pantoprazole VIAL 40 MG VIAL IV SCH (08:08)
[2020-05-09 09:17] LABS: ABS Basophils 0.1 10^3/ul (0-0.2); ABS Eosinophils 0.1 10^3/ul (0-0.6); ABS Lymphocytes 1.5 10^3/ul (1.0-4.8); ABS Monocytes 0.6 10^3/ul (0-0.8); ABS Neutrophils 2.9 10^3/ul (1.5-7.7); Eosinophil % 2.7 %; Hematocrit 31 % (35-47); Hemoglobin 10.5 g/dL (12.0-16.0); Lymphocyte % 28.2 %; Mean Corpuscular HGB Conc 33 g/dL (31-36); Mean Corpuscular Hemoglobin 29 pg (27-31); Mean Corpuscular Volume 88 fL (80-97); Mean Platelet Volume 8.5 fL (7.4-10.4); Nucleated Red Blood Cells % 0.1; Platelet Count 259 10^3/uL (150-450); Red Blood Count 3.56 10^6 /uL (3.70-4.87); Red Cell Distribution Width 17 % (10-15); White Blood Count 5.2 10^3/uL (3.5-10.8)
[2020-05-09 09:34] LABS: BUN/Creatinine Ratio 5.4 (8-20); Calcium 8.3 mg/dL (8.6-10.3); EGFR African American 100.9 (>60); EGFR Non-African American 83.4 (>60); Magnesium 1.8 mg/dL (1.9-2.7); Potassium 3.3 mmol/L (3.5-5.0)
[2020-05-09] MEDS: Mupirocin 2% OINT TUBE TOPICAL SCH (11:02)
[2020-05-09 13:12] VITALS: BP 113/72
== END 2020-05-09 15:22 | disposition home or self-care (01) | DRG 245 ==
LOC: ED 10:20 → MED 19:07
PROVIDERS: ADMIT Pediatrics; ATTEND Pediatrics